=== PATIENT | male | born 1940 | race Caucasian/White ===

== ENCOUNTER 2017-09-04 14:41 | Inpatient (IN) ==
[2017-09-04] MEDS ORDERED: methylPREDNISolone 125 MG/2 ML VIAL IVP ONE (14:46)
[2017-09-04] MEDS ORDERED: Ipratropium/Albuterol Neb 3 ML IH ONE (14:47)
--- NOTE | 2017-09-04 15:20 | Emergency Department Note ---
Disposition Clinical Impression: Elevated troponin, Acute electrocardiogram changes CKD (chronic kidney disease) Qualifiers: Chronic kidney disease stage: unspecified stage Qualified Code(s): N18.9 - Chronic kidney disease, unspecified CHF (congestive heart failure) Qualifiers: Congestive heart failure type: unspecified congestive heart failure type Congestive heart failure chronicity: acute Qualified Code(s): I50.9 - Heart failure, unspecified GI bleed Qualifiers: GI bleed type/associated pathology: unspecified gastrointestinal hemorrhage type Qualified Code(s): K92.2 - Gastrointestinal hemorrhage, unspecified Anemia Qualifiers: Anemia type: unspecified type Qualified Code(s): D64.9 - Anemia, unspecified Disposition: Admitted As Inpatient Condition: Fair General Adult HPI - General Chief complaint: ED Shortness of Breath/Dyspnea Stated complaint: Dyspnea Time Seen by Provider: 09/04/17 14:43 Source: patient, EMS Limitations: no limitations Nursing Notes Reviewed: Yes Vital Signs Reviewed: Yes - History of Present Illness HPI Narrative: 77-year-old male with a history of dementia and a history of a large stroke affecting the left side of his body. He is mostly bedbound at home. He presents today due to increased generalized fatigue and cough. He does have a history of COPD and does take albuterol at home and has been needing additional albuterol treatments. In addition his caregiver noted that his temperatures from climbing but has not been specifically febrile. He does have a history of dementia and his ex- this is so caregiver. She expresses to me that she is having difficulty in taking care of him due to his increased fatigue. He does state Xarelto 15 mg daily reportedly for stroke prevention. Denies a history of blood clots or A. fib. He has had a cough but is nonproductive. He denies any difficulty with bowel movements or urination. No nausea or vomiting. Pain Scale: 0 Consistency: constant Improves with: nothing Worsens with: nothing Associated symptoms: Reports: denies other symptoms Treatments Prior to Arrival: none - Related Data Home Medications Medication Instructions Recorded Confirmed Aspirin Enteric Coated [Aspirin EC] 81 mg PO DAILY 08/25/15 05/09/16 Donepezil [Aricept] 5 mg PO HS 08/25/15 05/09/16 Fesoterodine Fumarate [Toviaz] 4 mg PO DAILY 08/25/15 05/09/16 Gabapentin [Neurontin] 600 mg PO BID 08/25/15 05/09/16 Metoprolol XL (24 HR) Succ [Toprol 25 mg PO DAILY 08/25/15 05/09/16 XL] Rivaroxaban [Xarelto] 15 mg PO 1700 08/25/15 05/09/16 Sertraline [Zoloft] 150 mg PO DAILY 08/25/15 05/09/16 Albuterol Sulfate [Ventolin Hfa] 2 puff IH Q4H PRN 05/09/16 05/09/16 Atorvastatin Calcium [Lipitor] 80 mg PO HS 05/09/16 05/09/16 GlipiZIDE [Glucotrol] 10 mg PO BIDWM 05/09/16 05/09/16 [place]-3/Dha/Epa/Fish Oil [Fish Oil 1 each PO DAILY 05/09/16 05/09/16 1,000 mg Softgel] Pioglitazone HCl [Actos] 30 mg PO DAILY 05/09/16 05/09/16 Trazodone HCl 200 mg PO HS 05/09/16 05/09/16 Previous Rx's Medication Instructions Recorded LORazepam [Ativan] 1 mg PO QID PRN #20 tablet 08/28/15 OxyCODONE/APAP 7.5/325 [Percocet 1 each PO Q6HR PRN #20 tablet 08/28/15 7.5/325] SitaGLIPtin [Januvia] 50 mg PO DAILY #30 tablet 08/28/15 Levofloxacin [Levaquin] 750 mg PO DAILY #3 tablet 05/13/16 Losartan Potassium [Cozaar] 50 mg PO DAILY #30 tab 05/13/16 Allergies Allergy/AdvReac Type Severity Reaction Status Date / Time No Known Allergies Allergy Verified 08/25/15 14:22 All systems ED: reviewed and negative except as stated. Constitutional: Denies: fever Eyes: Denies: vision change ENT ED: Denies: throat pain Cardiovascular: Reports: dyspnea on exertion. Denies: chest pain Respiratory: Reports: cough, dyspnea. Denies: wheezes Gastrointestinal: Reports: abdominal pain Genitourinary: Denies: dysuria Musculoskeletal: Denies: back pain Integumentary: Denies: rash Endocrine: Reports: fatigue Past Medical History - Past Medical History Medical history: Reports: asthma, CVA, diabetes, hyperlipidemia, hypertension, myocardial infarction, peripheral artery disease Surgical history: Reports: other Psychiatric history: Reports: PTSD - Social History Smoking Status: Former smoker Smokeless Tobacco Status: No Alcohol use: Reports: occasionally Drug use: Reports: none Physical Exam - General Limitations: no limitations General appearance: alert, in no apparent distress - Head Head exam: atraumatic - Eye Eye exam: Present: normal appearance, PERRL - ENT ENT exam: normal exam - Neck Neck exam: Present: normal inspection - Chest Chest inspection: Present: normal inspection - Respiratory Respiratory exam: Absent: respiratory distress - Cardiovascular Cardiovascular exam: Present: regular rate, normal rhythm - Abdominal Exam Abdominal exam: Present: soft, Non-Tender - Extremities Exam Extremities exam: Present: normal inspection - Neurological Exam Neurological exam: Present: alert, other (He has baseline dementia with confusion. He does have significant motor and sensory deficit of the left side of his body. This is chronic) - Skin Skin exam: Present: warm, dry Course Course Narrative: He is having dyspnea with a cough and elevated temperature. His SPO2 was decreased at triage. I do have concern for pneumonia. We will get a chest x- ray and basic lab work. His EKG does demonstrate some diffuse changes including diffuse T-wave inversions. He denies having any chest pain at this time. He denies having cardiac disease and said he had a heart catheter approximately 2 years ago which did not require stents. Hemoccult is positive. I spoke with welt sole layer Dr. Jeff. I expressed to him the EKG changes along with the elevated troponin and the decreased hemoglobin. As he is Hemoccult positive and he is already anticoagulated on Xarelto we will not do heparin at this time. Dr. Jeff recommended to currently hold diuresis and turned his troponin he will see him in the morning. We will admit to the hospitalist. Vital Signs Temperature 99.9 F H 09/04/17 14:45 Pulse Rate 71 09/04/17 14:45 Respiratory Rate 18 09/04/17 14:45 Blood Pressure 134/59 09/04/17 14:45 O2 Sat by Pulse Oximetry 91 09/04/17 14:45 Temperature 99.9 F H 09/04/17 14:45 Pulse Rate 69 09/04/17 19:00 Respiratory Rate 20 09/04/17 19:00 Blood Pressure 136/56 09/04/17 19:00 O2 Sat by Pulse Oximetry 97 09/04/17 19:00 Oxygen Delivery Oxygen Delivery Nasal Cannula Medical Decision Making - Medical Records Medical records reviewed: Yes I reviewed the patient's medical records. - Lab Data Lab results reviewed: Yes I reviewed the patient's lab results. Result diagrams: 09/04/17 15:28 09/04/17 15:28 Lab Results 09/04/17 09/04/17 09/04/17 Range/Units 15:28 15:28 15:28 WBC 14.2 H (4.3-11.1) K/mcL RBC 2.64 L (4.19-5.50) M/mcL Hgb 8.4 L (12.9-16.9) g/dL Hct 26.0 L (37.5-50.1) % MCV 98.5 (83.0-100.0) fL MCH 31.8 (28.0-33.3) pg MCHC 32.3 (31.6-35.5) g/dL RDW 14.1 (11.5-14.5) % Plt Count 157 (140-400) K/mcL MPV 9.9 (9.4-12.4) fL Immature Gran % 0.4 (0-4) % Seg Neutrophils % 90.6 % Lymphocytes % 3.3 % Monocytes % 5.5 % Eosinophils % 0.1 % Basophils % 0.1 % Neutrophils # 12.9 H (1.6-8.9) K/mcL Lymphocytes # 0.5 L (0.6-4.6) K/mcL Monocytes # 0.8 (0.0-1.3) K/mcL Eosinophils # 0.0 (0.0-0.6) K/mcL Basophils # 0.0 (0.0-0.2) K/mcL PT (9.4-12.1) Seconds INR APTT (26.0-36.0) Seconds Sodium 131 L (136-145) mEq/L Potassium 5.5 H (3.5-4.5) mEq/L Chloride 96 L (98-109) mEq/L Carbon Dioxide 29 (19-29) mEq/L BUN 36 H (8-26) mg/dL Creatinine 2.31 H (0.72-1.25) mg/dL Est GFR ( Amer) 33 L (> 60) Est GFR (Non-Af Amer) 27 L (> 60) BUN/Creatinine Ratio 16 (6-26) Glucose 279 H (70-99) mg/dL Calculated Osmolality 290 (280-300) Lactic Acid 1.4 (0.5-2.2) mmol/L Calcium 9.0 (8.6-10.8) mg/dL Troponin I (0-0.03) ng/mL B-Natriuretic Peptide (0-100) pg/mL Stool Occult Blood (Negative) Blood Type Antibody Screen 09/04/17 09/04/17 09/04/17 Range/Units 15:28 15:28 15:28 WBC (4.3-11.1) K/mcL RBC (4.19-5.50) M/mcL Hgb (12.9-16.9) g/dL Hct (37.5-50.1) % MCV (83.0-100.0) fL MCH (28.0-33.3) pg MCHC (31.6-35.5) g/dL RDW (11.5-14.5) % Plt Count (140-400) K/mcL MPV (9.4-12.4) fL Immature Gran % (0-4) % Seg Neutrophils % % Lymphocytes % % Monocytes % % Eosinophils % % Basophils % % Neutrophils # (1.6-8.9) K/mcL Lymphocytes # (0.6-4.6) K/mcL Monocytes # (0.0-1.3) K/mcL Eosinophils # (0.0-0.6) K/mcL Basophils # (0.0-0.2) K/mcL PT 21.4 H (9.4-12.1) Seconds INR 2.0 APTT 38.8 H (26.0-36.0) Seconds Sodium (136-145) mEq/L Potassium (3.5-4.5) mEq/L Chloride (98-109) mEq/L Carbon Dioxide (19-29) mEq/L BUN (8-26) mg/dL Creatinine (0.72-1.25) mg/dL Est GFR ( Amer) (> 60) Est GFR (Non-Af Amer) (> 60) BUN/Creatinine Ratio (6-26) Glucose (70-99) mg/dL Calculated Osmolality (280-300) Lactic Acid (0.5-2.2) mmol/L Calcium (8.6-10.8) mg/dL Troponin I 0.63 H* (0-0.03) ng/mL B-Natriuretic Peptide 1443 H (0-100) pg/mL Stool Occult Blood (Negative) Blood Type Antibody Screen 09/04/17 09/04/17 Range/Units 16:20 16:46 WBC (4.3-11.1) K/mcL RBC (4.19-5.50) M/mcL Hgb (12.9-16.9) g/dL Hct (37.5-50.1) % MCV (83.0-100.0) fL MCH (28.0-33.3) pg MCHC (31.6-35.5) g/dL RDW (11.5-14.5) % Plt Count (140-400) K/mcL MPV (9.4-12.4) fL Immature Gran % (0-4) % Seg Neutrophils % % Lymphocytes % % Monocytes % % Eosinophils % % Basophils % % Neutrophils # (1.6-8.9) K/mcL Lymphocytes # (0.6-4.6) K/mcL Monocytes # (0.0-1.3) K/mcL Eosinophils # (0.0-0.6) K/mcL Basophils # (0.0-0.2) K/mcL PT (9.4-12.1) Seconds INR APTT (26.0-36.0) Seconds Sodium (136-145) mEq/L Potassium (3.5-4.5) mEq/L Chloride (98-109) mEq/L Carbon Dioxide (19-29) mEq/L BUN (8-26) mg/dL Creatinine (0.72-1.25) mg/dL Est GFR ( Amer) (> 60) Est GFR (Non-Af Amer) (> 60) BUN/Creatinine Ratio (6-26) Glucose (70-99) mg/dL Calculated Osmolality (280-300) Lactic Acid (0.5-2.2) mmol/L Calcium (8.6-10.8) mg/dL Troponin I (0-0.03) ng/mL B-Natriuretic Peptide (0-100) pg/mL Stool Occult Blood Positive A (Negative) Blood Type A POSITIVE Antibody Screen NEGATIVE - Radiology Data Radiology results reviewed: Yes I reviewed the patient's radiology results. - EKG Data EKG #1 EKG attestation: Yes I reviewed and interpreted this EKG. EKG shows normal: sinus rhythm Rate: normal Rhythm: NSR [place]/QRS: RBBB ST segment depression in: II, III, aVF, v3, v4, v5, v6 When compared to previous EKG there are: changes noted Interpretation: other (Diffuse T-wave inversions and mild ST depression in the lateral leads) Attestation Statement - Attestation Attestation: I, Jaydon Barcenas DO, examined this patient [id number] and my medical decision-making was reviewed with Dr. Chaz Gerard, Resident Physician. I agree with the documented findings, disposition and treatment plan as described except to the extent set forth below. Please see my progress notes for details. 77-year-old male presents by EMS for evaluation of shortness of breath . Patient is an productive sputum as well as increased work of breathing at home. Patient is also been hypoxic with his pulse ox pain in the upper 80s to 90s. Patient does not have oxygen at home at this time. Denies any other trauma or injury. Patient has pain in the right lower extremity but no signs of visible injury issue at this point. Vital signs. Patient is tachycardic and hypoxic. Breathing treatments steroids chest x-ray EKG labs including troponin and BNP as well as lactic acid will be started. Patient has been on amoxicillin at home with no relief of the symptoms at this point. Patient will most likely need admission for definitive evaluation and treatment. His physical exam is otherwise unremarkable. Patient speaks in full sentences does have slight conversational dyspnea. Lungs are otherwise clear but he does have increased work of breathing. Heart is regular on exam. Disposition will be admission. See detailed documentation of physical exam, medical intervention, medical decision-making and disposition the resident physician's note 1900 Patient found to have significant pulmonary edema and elevated BNP. She is otherwise stable at this point. Will be admitted for fluid evaluation. Recommended to withhold heparin at this time until troponins are trending. Patient is clinically stable at this point. No diuresis started considering the prior blood pressure has been labile. Patient is otherwise stable resting about this point comfortable with the admission process.
[2017-09-04 15:38] LABS: Basophils % 0.1 %; Eosinophils % 0.1 %; Hemoglobin 8.4 g/dL (12.9-16.9); Immature Granulocytes % 0.4 % (0-4); Lymphocytes # 0.5 K/mcL (0.6-4.6); Lymphocytes % 3.3 %; Mean Corpuscular HGB Conc 32.3 g/dL (31.6-35.5); Mean Corpuscular Hemoglobin 31.8 pg (28.0-33.3); Mean Corpuscular Volume 98.5 fL (83.0-100.0); Mean Platelet Volume 9.9 fL (9.4-12.4); Monocytes # 0.8 K/mcL (0.0-1.3); Monocytes % 5.5 %; Neutrophils # 12.9 K/mcL (1.6-8.9); Platelet Count 157 K/mcL (140-400); Red Blood Count 2.64 M/mcL (4.19-5.50); Red Cell Distribution Width 14.1 % (11.5-14.5); Segmented Neutrophils % 90.6 %
[2017-09-04 15:42] LABS: Prothrombin Time 21.4 Seconds (9.4-12.1)
[2017-09-04 15:45] LABS: Activated Partial Thrombo Time 38.8 Seconds (26.0-36.0)
[2017-09-04 15:50] LABS: Potassium 5.5 mEq/L (3.5-4.5)
[2017-09-04] MEDS ORDERED: Calcium Gluconate 1,000 MG in D5% in Water 100 ML IVPB ONE (20:00)
[2017-09-04] MEDS ORDERED: Ondansetron 4 MG/2 ML VIAL IVP PRN (21:22)
[2017-09-04] MEDS ORDERED: Acetaminophen 325 MG TABLET PO PRN (21:22)
[2017-09-04] MEDS ORDERED: Naloxone 0.4 MG/ML INJ IVP PRN (21:22)
[2017-09-04] MEDS ORDERED: Nitroglycerin 0.4 MG TAB.SUBL SL PRN (21:25)
[2017-09-04] MEDS ORDERED: *HR* LORazepam 1 MG TABLET PO PRN (21:25)
[2017-09-04] MEDS ORDERED: Dextrose Gel 15 GM PO PRN ×2 (21:28)
[2017-09-04] MEDS ORDERED: D5% in Water 1,000 ML IVC PRN (21:28)
[2017-09-04] MEDS ORDERED: *HR* Dextrose 50 % in Water (Syg) 50 ML SYRINGE IVP PRN (21:28)
[2017-09-04] MEDS ORDERED: Insulin LISPRO 300 UNITS/3 ML VIAL SQ SCH (21:30)
--- NOTE | 2017-09-04 21:32 | Internal Med History&Physical ---
Date of Encounter: 09/04/17 Time of Encounter: 21:32 Assessment and Plan (1) Anemia Current visit: Yes Status: Acute 1 secondary to blood loss-as well as patient does have CK D. In June patient' s hemoglobin was 10% to a point for now. She is on several toe and does admit to episodes of bright red blood in his stool. She was Hemoccult positive. We will continue to trend H&H every 8 hours Type and screen 1 unit PRBCs Continue cardiac monitoring Qualifiers: Anemia type: unspecified type Qualified Code(s): D64.9 - Anemia, unspecified (2) GI bleed Current visit: Yes Status: Acute Patient has been experiencing bright red blood in his stool he was Hemoccult positive and he is on xarelto -we will hold xarelto for now Monitor H&H every 8 hours Type and screen for PRBC and transfuse Consult GI-patient's last colonoscopy was approximately 5 years ago in [place] per Dr. Garland-he had some polyps removed Qualifiers: GI bleed type/associated pathology: unspecified gastrointestinal hemorrhage type Qualified Code(s): K92.2 - Gastrointestinal hemorrhage, unspecified (3) CHF (congestive heart failure) Current visit: Yes Status: Acute 1 Echo 2016 Mildly dilated left ventricle. LVEF 50-55%. There is akinesis of the basal inferior wall. All other myocardial segments display normal wall motion. Normal right ventricular structure and function. Valvular function was not assessed on this limited study. We will obtain echo, continuous cardiac monitoring We will give 1 dose of 40 mg IV Lasix now-she appears to have mild CHF We will consult cardiology We will place on 40 mg by mouth daily Qualifiers: Congestive heart failure type: unspecified congestive heart failure type Congestive heart failure chronicity: acute Qualified Code(s): I50.9 - Heart failure, unspecified (4) Elevated troponin Current visit: Yes Status: Acute Patient does have elevated troponin we will continue to trend sure this is related to demand ischemia he does not have any chest pain he does ST depression lateral leads. Continuous cardiac monitoring Consult cardiology We will give 1 unit of PRBCs He is anticoagulated Xarelto- we will hold dose for now due to positive Hemoccult (5) ROSA MARIA (acute kidney injury) Current visit: Yes Status: Acute (6) Hyperkalemia Current visit: Yes Status: Acute Patient has potassium 5.5 creatinine is also elevated. He is on Cozaar which we will hold for now he was given insulin bicarbonate calcium gluconate. We will give 40 mg IV Lasix now. We will recheck potassium at midnight. Cardiac monitoring (7) DVT prophylaxis Current visit: No Status: Acute SCDs Internal Medicine - H&P: HPI Chief complaint: weakness Admitted From: Emergency Dept History of present illness: Mr. Stockton is a 77 year old male past medical history of hypertension hyperlipidemia diabetes COPD CVA-T 97 CK D stage III CAD dementia. Coronary patient has been experiencing increasing dyspnea with cough weakness and fatigue. He does have history of COPD and has been taking albuterol treatments with little relief. He has left-sided weakness secondary to CVA and is mostly bedbound at home. Family reports subjective fevers. Denies any chest pain abdominal pain nausea vomiting or diarrhea. He has episodes of bright red blood in stool a few weeks ago however however nothing recently. He does take Xarelto 15 mg daily for stroke prevention. Did have a heart catheter 2 years ago with no stents He denies any melenic stools or hematemesis. His last colonoscopy was approximately 5 years ago at [facility] per Dr. Garland. He states he had several polyps removed. He presented to the ER with the above complaints in the ER was noted his troponin was elevated as well as his Hemoccult was positive there was some ST depression in lateral leads on his EKG. ER physician did speak with Dr. Jeff in detail with her heparin drip at this time due to his artery anticoagulated and continue to trend his troponins and they would see him in the morning. He has been admitted for further evaluation. Presently patient is not to be actively bleeding. Clinically he appears to be mildly fluid overloaded. He is hemodynamically stable at this time. I did review this case with who agrees with plan. Past Med Surg Social Fam HX - Past Medical History Medical history: asthma, CVA, diabetes, hyperlipidemia, hypertension, myocardial infarction, peripheral artery disease Psychiatric history: PTSD - Past Surgical History Surgical History: other - Social History Smoking Status: Former smoker Smokeless Tobacco Status: No Alcohol use: none, rarely Drug use: none - Family History Father Adopted: No Family Member Ethnicity: Non- Living Status: Hx Family Cardiac Disorders: Yes Internal Medicine - H&P: Meds Aspirin Enteric Coated [Aspirin EC] 81 mg PO DAILY 08/25/15 [History] Donepezil [Aricept] 5 mg PO HS 08/25/15 [History] Gabapentin [Neurontin] 600 mg PO BID 08/25/15 [History] Metoprolol XL (24 HR) Succ [Toprol XL] 25 mg PO DAILY 08/25/15 [History] Rivaroxaban [Xarelto] 15 mg PO 1700 08/25/15 [History] Sertraline [Zoloft] 150 mg PO DAILY 08/25/15 [History] LORazepam [Ativan] 1 mg PO QID PRN #20 tablet 08/28/15 [Rx] OxyCODONE/APAP 7.5/325 [Percocet 7.5/325] 1 each PO Q6HR PRN #20 tablet [Rx] Albuterol Sulfate [Ventolin Hfa] 2 puff IH Q4H PRN 05/09/16 [History] Atorvastatin Calcium [Lipitor] 80 mg PO HS 05/09/16 [History] GlipiZIDE [Glucotrol] 10 mg PO BIDWM 05/09/16 [History] [place]-3/Dha/Epa/Fish Oil [Fish Oil 1,000 mg Softgel] 1 each PO DAILY 05/09/16 [ History] Trazodone HCl 200 mg PO HS 05/09/16 [History] Losartan Potassium [Cozaar] 50 mg PO DAILY #30 tab 05/13/16 [Rx] Ergocalciferol (VITAMIN D2) [Vitamin D2] 50,000 unit PO QMONTH 09/04/17 [History ] Ferrous Sulfate [Iron] 325 mg PO DAILY 09/04/17 [History] Ipratropium/Albuterol Neb [Duoneb] 3 ml IH Q6HR 09/04/17 [History] Mirabegron [Myrbetriq] 50 mg PO DAILY 09/04/17 [History] Nitroglycerin [Nitrostat] 0.4 mg SL Q5M PRN 09/04/17 [History] Pioglitazone HCl [Actos] 30 mg PO DAILY 09/04/17 [History] Sitagliptin Phosphate [Januvia] 50 mg PO DAILY 09/04/17 [History] 3 Allergy/AdvReac Type Severity Reaction Status Date / Time No Known Allergies Allergy Verified 08/25/15 14:22 All Systems PM: A 10-system review of systems was performed and is negative for pertinent findings except as documented above in the HPI. - Constitutional Constitutional: weakness, no chills, no fever(s), no night sweats - EENT Eyes: no change in vision, no discharge, no pain, no photophobia Ears: no ear discharge, no ear pain, no tinnitus Nose, mouth and throat: no dysphagia, no nasal discharge, no neck pain, no sore throat - Cardiovascular Cardiovascular ROS IM: dyspnea, no chest pain, no diaphoresis, no lightheadedness, no palpitations, no syncope - Respiratory Respiratory: cough - Gastrointestinal Gastrointestinal: no abdominal pain, no diarrhea, no hematemesis, no hematochezia, no melena, no nausea, no vomiting - Musculoskeletal Musculoskeletal ROS IM: no numbness, no tingling - Neurological Neurological ROS: no confusion, no convulsions, no focal weakness, no numbness, no tingling, no tremor(s) - Hematologic/Lymphatic Hematologic/Lymphatic: no easy bruising - Constitutional Vitals: Temp Pulse Resp BP Pulse Ox 98.7 F 73 20 138/61 96 09/04/17 20:37 09/04/17 20:37 09/04/17 20:37 09/04/17 20:37 09/04/17 20:37 General appearance: Present: A&O X 3 - Head Head exam: Present: atraumatic, normocephalic - Eye Eye exam: Present: PERRL, conjuntiva pink, sclera anicteric Pupils: Present: PERRL - Neck Neck exam general surgery: Present: supple, trachea midline. Absent: lymphadenopathy - Respiratory Respiratory exam: Present: rales. Absent: accessory muscle use, rhonchi, wheezes - Cardiovascular Cardiovascular exam: Present: RRR, +S1, +S2. Absent: diastolic murmur, gallop, rubs, systolic murmur - GI/Abdominal GI/Abdominal exam: Present: normal bowel sounds, soft, no peritoneal signs. Absent: distended, tenderness - Extremities Exam Extremities exam: Present: pedal edema, warm, radial pulses palpable and symmetrical. Absent: calf tenderness, cyanotic - Neurological Exam Neurological exam: Present: CN II-XII intact, oriented X3, no focal deficits. Absent: pronater drift, facial droop, speech deficit - Skin Skin exam: Present: dry, intact Internal Med - H&P Results - Labs CBC & Chem 7: 09/04/17 15:28 09/04/17 15:28 - Diagnostic Studies Other Images Additional comments: Chest X-Ray 09/04/17 14:46 IMPRESSION: Mild pulmonary vascular congestion. No focal consolidation. D/ / Jolene Cooper MD / Jolene Cooper MD Interpreting Provider: Jolene Cooper MD Head CT 09/04/17 16:42 IMPRESSION: 1. No acute intracranial abnormality. 2. 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 D/ / Camden Martin MD / Camden Martin MD Interpreting Provider: Camden Martin MD Pulmonary Perfusion Imaging 09/04/17 16:42 IMPRESSION: Very low probability for pulmonary embolism. D/ / Camden Martin MD / Camden Martin MD Interpreting Provider: Camden Martin MD
[2017-09-04] MEDS ORDERED: Furosemide 40 MG/4 ML VIAL IVP ONE ×2 (21:48→22:34)
[2017-09-04] MEDS ORDERED: Furosemide 20 MG/2 ML VIAL IVP ONE (21:56)
--- NOTE | 2017-09-04 22:27 | Event Note ---
Date of Encounter: 09/04/17 Time of Encounter: 22:25 Patient and examined with nurse practitioner. His occult blood is positive and Hb is 2 gm lower than baseline. Because his troponin is 0.[address]- segment depressions laterally, will hold xarelto and give 1 unit of blood for Hb of 8.4 followed by 20 IV lasix. Serial troponin and Hb. iv protonix. Cardiology and GI consultation
[2017-09-04 23:03] LABS: Hematocrit 26.7 % (37.5-50.1); Hemoglobin 8.9 g/dL (12.9-16.9)
[2017-09-04] MEDS: *HR* OxyCODONE/APAP 7.5/325 TABLET PO PRN (23:47)
[2017-09-04] MEDS: Gabapentin 300 MG CAPSULE PO SCH (23:48)
[2017-09-04] MEDS: traZODone 50 MG TABLET PO SCH (23:48)
[2017-09-05] MEDS ORDERED: Furosemide 20 MG/2 ML VIAL IVP ONE (00:14)
[2017-09-05] MEDS ORDERED: *HR* Dextrose 50 % in Water (Syg) 50 ML SYRINGE IVP ONE (03:29)
[2017-09-05] MEDS ORDERED: Insulin Human Regular 10 UNIT in 0.9 % Sodium Chloride 10 ML IV ONE (03:30)
[2017-09-05] MEDS ORDERED: 0.9 % Sodium Chloride 500 ML IVC ONE (03:31)
[2017-09-05] MEDS ORDERED: Calcium Gluconate 1,000 MG in D5% in Water 100 ML IVPB ONE (03:31)
[2017-09-05] MEDS: Ipratropium/Albuterol Neb 3 ML IH SCH ×4 (04:10→22:26)
[2017-09-05 05:36] LABS: Calcium 8.9 mg/dL (8.6-10.8); Magnesium 2.2 mg/dL (1.6-2.6); Potassium 5.3 mEq/L (3.5-4.5)
[2017-09-05 05:38] LABS: Basophils % 0.1 %; Hematocrit 25.3 % (37.5-50.1); Hemoglobin 8.4 g/dL (12.9-16.9); Immature Granulocytes % 0.3 % (0-4); Lymphocytes # 0.3 K/mcL (0.6-4.6); Lymphocytes % 2.9 %; Mean Corpuscular HGB Conc 33.2 g/dL (31.6-35.5); Mean Corpuscular Hemoglobin 32.2 pg (28.0-33.3); Mean Corpuscular Volume 96.9 fL (83.0-100.0); Mean Platelet Volume 11.2 fL (9.4-12.4); Monocytes % 0.1 %; Neutrophils # 9.3 K/mcL (1.6-8.9); Platelet Count 149 K/mcL (140-400); Red Blood Count 2.61 M/mcL (4.19-5.50); Red Cell Distribution Width 13.8 % (11.5-14.5); Segmented Neutrophils % 96.6 %
[2017-09-05 06:06] LABS: Hematocrit 24.3 % (37.5-50.1); Hemoglobin 7.9 g/dL (12.9-16.9)
[2017-09-05] MEDS: Pantoprazole 40 MG VIAL IVP SCH ×2 (06:40→18:03)
[2017-09-05] MEDS ORDERED: 0.9 % Sodium Chloride 250 ML ONE (07:15)
[2017-09-05 07:27] LABS: Toxic Granulation Present (Not Present)
[2017-09-05 07:28] LABS: Platelet Estimate Normal (Normal)
[2017-09-05] MEDS ORDERED: Insulin LISPRO 300 UNITS/3 ML VIAL SQ SCH ×2 (07:30)
[2017-09-05] MEDS: Gabapentin 300 MG CAPSULE PO SCH ×2 (08:50→20:55)
[2017-09-05] MEDS: (Fish Oil 1,000 Mg Softgel) PO SCH (08:51)
[2017-09-05] MEDS: Metoprolol XL (24 HR) Succ 25 MG TAB.ER.24H PO SCH (08:51)
[2017-09-05] MEDS: Furosemide 20 MG TABLET PO SCH (08:51)
[2017-09-05] MEDS: MYRBETRIQ PO SCH (08:51)
[2017-09-05] MEDS: Aspirin Enteric Coated 81 MG Tablet PO SCH (08:52)
[2017-09-05] MEDS: Insulin LISPRO 300 UNITS/3 ML VIAL SQ SCH ×3 (08:56→17:59)
[2017-09-05] MEDS ORDERED: Furosemide 20 MG TABLET PO SCH (09:00)
[2017-09-05] MEDS ORDERED: NON-FORMULARY MEDICATION 1 EACH EACH (Losartan Potassium [Cozaar] 50 MG) PO SCH (09:00)
[2017-09-05] MEDS ORDERED: Pantoprazole 40 MG VIAL IVP SCH (09:00)
--- NOTE | 2017-09-05 09:05 | Electrocardiograph Report ---
[place] [address] Test Date: 2017-09-04 Pat Name: Bryson Stockton Department: 102 Room: 2NE31 Gender: M [employer] Tender: : 1940 Requested By: Jaydon Barcenas Order Number: [id number] Reading MD: Kadi Arreola Measurements Intervals [place] Rate: 74 P: 70 [place]: 184 QRS: 90 QRSD: 150 T: -68 QT: 421 QTc: 449 Interpretive Statements SINUS RHYTHM RIGHT BUNDLE BRANCH BLOCK [120+ ms QRS DURATION, UPRIGHT V1, 40+ ms S IN I/aVL/V4/V5/V6] MODERATE T-WAVE ABNORMALITY, CONSIDER LATERAL ISCHEMIA [-0.1+ mV T WAVE IN I/aVL/V5/V6] MODERATE T-WAVE ABNORMALITY, CONSIDER INFERIOR ISCHEMIA [-0.1+ mV T WAVE IN II/aVF] Electronically Signed On 09-05-2017 9:03:03 EDT by Kadi Arreola
--- NOTE | 2017-09-05 09:28 | Anesthesia Evaluation PreOp ---
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: CVA (residual left side weakness) Other Medical History: Renal (CKD 3), Diabetes Type II, Other (PTSD) Anesthesia History: No Prior Anesthetic Complications, Past Anesthesia Alcohol Use: none, rarely Drug use: none Medications and Allergies Aspirin Enteric Coated [Aspirin EC] 81 mg PO DAILY 08/25/15 [History] Donepezil [Aricept] 5 mg PO HS 08/25/15 [History] Gabapentin [Neurontin] 600 mg PO BID 08/25/15 [History] Metoprolol XL (24 HR) Succ [Toprol XL] 25 mg PO DAILY 08/25/15 [History] Rivaroxaban [Xarelto] 15 mg PO 1700 08/25/15 [History] Sertraline [Zoloft] 150 mg PO DAILY 08/25/15 [History] LORazepam [Ativan] 1 mg PO QID PRN #20 tablet 08/28/15 [Rx] OxyCODONE/APAP 7.5/325 [Percocet 7.5/325] 1 each PO Q6HR PRN #20 tablet [Rx] Albuterol Sulfate [Ventolin Hfa] 2 puff IH Q4H PRN 05/09/16 [History] Atorvastatin Calcium [Lipitor] 80 mg PO HS 05/09/16 [History] GlipiZIDE [Glucotrol] 10 mg PO BIDWM 05/09/16 [History] [place]-3/Dha/Epa/Fish Oil [Fish Oil 1,000 mg Softgel] 1 each PO DAILY 05/09/16 [ History] Trazodone HCl 200 mg PO HS 05/09/16 [History] Losartan Potassium [Cozaar] 50 mg PO DAILY #30 tab 05/13/16 [Rx] Ergocalciferol (VITAMIN D2) [Vitamin D2] 50,000 unit PO QMONTH 09/04/17 [History ] Ferrous Sulfate [Iron] 325 mg PO DAILY 09/04/17 [History] Ipratropium/Albuterol Neb [Duoneb] 3 ml IH Q6HR 09/04/17 [History] Mirabegron [Myrbetriq] 50 mg PO DAILY 09/04/17 [History] Nitroglycerin [Nitrostat] 0.4 mg SL Q5M PRN 09/04/17 [History] Pioglitazone HCl [Actos] 30 mg PO DAILY 09/04/17 [History] Sitagliptin Phosphate [Januvia] 50 mg PO DAILY 09/04/17 [History] 3 Allergy/AdvReac Type Severity Reaction Status Date / Time No Known Allergies Allergy Verified 08/25/15 14:22 - Meds/Allergy Pre-op Review Medications Reviewed: Yes Allergies Reviewed: Yes Beta Blockers on Current Med List: No Anesthesia Results - Labs 09/05/17 05:40 09/05/17 05:40 - Imaging EKG: report reviewed (SINUS RHYTHM RIGHT BUNDLE BRANCH BLOCK [120+ ms QRS DURATION, UPRIGHT V1, 40+ ms S IN I/aVL/V4/V5/V6] MODERATE T-WAVE ABNORMALITY, CONSIDER LATERAL ISCHEMIA [-0.1+ mV T WAVE IN I/aVL/V5/V6] MODERATE T-WAVE ABNORMALITY, CONSIDER INFERIOR ISCHEMIA [-0.1+ mV T WAVE IN II/aVF]) Additional studies: echo 2016: Impressions: Mildly dilated left ventricle. LVEF 50-55%. There is akinesis of the basal inferior wall. All other myocardial segments display normal wall motion. Normal right ventricular structure and function. Valvular function was not assessed on this limited study. Anesthesia Exam Selected Entries 09/05/17 08:10 09/05/17 08:19 Temperature 98.1 F Pulse Rate 66 Respiratory Rate 16 Blood Pressure 140/57 O2 Sat by Pulse Oximetry 99 Weight: 96kg NPO (# of Hours): 8 - REFUND SPECIALIST LOC: Oriented REFUND SPECIALIST Motor: Normal RUE, Normal RLE, Normal Face, Deficit LUE, Deficit LLE REFUND SPECIALIST Sensory: Normal: RUE, RLE, Face, Deficit: LUE, LLE - Cardiac Rhythm: Regular Murmur: None - Pulmonary Breath Sounds: bilateral Clear Respiratory Effort: Symmetrical Anesthesia Assess/Plan ASA Score: 3 Modified Raymond Scale for Level of Consciousness: Cooperative, oriented, and tranquil Anesthetic Plan: MAC Monitoring Plan: Standard Monitors Recovery Plan: Other (discussed MAC, patient agrees to proceed)
--- NOTE | 2017-09-05 09:40 | Gastroenterology Consult Note ---
<AmritmartínJorge garcia - Last Filed: 09/05/17 15:44> Date of Encounter: 09/05/17 Time of Encounter: 09:40 - Assessment and plan (1) Anemia Current Visit: Yes Status: Acute Assessment and plan: Mr. Stockton presents with acute on chronic normocytic anemia with current hemoglobin of 7.9 down from 8.9 yesterday. Review of patient's previous lab results demonstrates that he has an average hemoglobin of about 10.5. Mr. Stockton was complaining of 2 days of hematochezia, nonpainful and currently on chronic anticoagulation with Xarelto. His PT is 21.4 and INR 2.0 and review his previous INR demonstrates slow trending up. Iron studies were completed in June without any significant findings. Hematochezia may be secondary to hemorrhoids or diverticuli, no previous colonoscopy available for review but patient does have a history of polyps with no evaluation in the last 10+ years. Cannot rule out colon cancer or bleeding polyps at this time. Though the patient is currently demonstrating elevated troponins and ST depression on EKG concerning for NSTEMI and currently a high risk patient with current MO per cardiology. Plan: - Hold Xarelto - Keep nothing by mouth - Patient will require EGD but at this time he is too high risk with known cardiac disease. - Patient should receive PRBC transfusion with hemoglobin drop below 8.0 with known coronary artery disease, significant vascular disease. Qualifiers: Anemia type: unspecified type Qualified Code(s): D64.9 - Anemia, unspecified (2) Acute kidney injury superimposed on chronic kidney disease Current Visit: Yes Status: Acute Assessment and plan: Mr. Stockton has a known history of stage III chronic kidney disease and currently demonstrating acute on chronic kidney injury with a current creatinine of 2.33 with a baseline around 1.31, current GFR 27 with baseline around 56. - Likely worsened by dehydration and intravascular depletion secondary to GI loss. Plan: - Treatment per primary team (3) Hyponatremia Current Visit: Yes Status: Acute Assessment and plan: Patient's sodium is 1:30 in the setting of hyperglycemia with a glucose of 441 demonstrating pseudohyponatremia when corrected is appropriate. - Continue to monitor with transfusions and IV fluid rehydration. (4) Leg edema, left Current Visit: Yes Status: Acute Assessment and plan: Lower left extremity edema with 1+ pitting edema identified during physical exam. Patient's says that this has been progressing over the past week which does correlate with this shortness of breath. Mr. Stockton presented with extremity weakness changed from baseline and increasing shortness of breath. Plan: - Venous Doppler of bilateral lower extremities - Patient may need VQ scan, will discuss with primary team - Time Spent With Patient Total time spent is greater than 50% in coordination of care (as documented) at patient's floor/unit and/or counseling patient: GI History of Present Illness - Data of Consult Consult date: 09/05/17 Requesting Physician: Angel Monsivais MD - Consult Narrative Reason for consult: acute anemia History of present illness: Mr. Stockton is a 77 year old male Mr. Stockton is a 77 year old male past medical history of hypertension hyperlipidemia diabetes, MO, carotid artery disease, COPD, RIGHT MCA DISTRIBUTION CVA, CKD stage III CAD dementia. Mr. Stockton's was at bedside who is his primary caregiver and able to provide more accurate history given Mr. Stockton's mental status. According to his he started having streaks of blood in his stool roughly 2 days ago with 2-3 bowel movements per day. He did not complain of any pain and had not had symptoms like this prior. No history of trauma, excess NSAID use or anticoagulation use. He was brought to the hospital for weakness in his right upper extremity and weakness in his bilateral lower extremities. He has chronic weakness in his left upper extremity secondary to a right MCA distribution stroke and primarily uses his right hand and now is having difficulty. Upon further discussion he has been having shortness of breath worse over the last 1- 2 weeks. He is an uncontrolled diabetic with a history of left heart catheterization demonstrating severe single-vessel coronary artery disease of the RCA and mild left ventricular systolic dysfunction with an EF of 40-45% in 2013 at that time it demonstrated 30% stenosis in the proximal LAD and 40% stenosis in the circumflex coronary artery. He did not have any stent placement at that time. Upon admission he was found to elevated troponins, acute on chronic kidney disease, acute on chronic anemia with a positive stool occult. Mr. Stockton's states that he had a colonoscopy 10+ years ago and at that time they found 2 large polyps that were mostly removed but did not grow any malignant or premalignant cells. He had seen a physician in [place] but denies any recommended follow-up. She said that was his first and only colonoscopy. They deny any family history of colon cancer. Colonoscopy: 10+ years ago in [place] EGD: Denies Past Med Surg Social Fam HX - Past Medical History Medical history: asthma, CVA, diabetes, hyperlipidemia, hypertension, myocardial infarction, peripheral artery disease Psychiatric history: PTSD - Past Surgical History Surgical History: other - Social History Smoking Status: Former smoker Smokeless Tobacco Status: No Alcohol use: none, rarely Drug use: none - Family History Father Adopted: No Family Member Ethnicity: Non- Living Status: Hx Family Cardiac Disorders: Yes - Gastrointestinal NSAID use: Denies Anticoagulation Use: Xarelto and aspirin Number of BM Per Day: 1-2 Gastrointestinal: Present: hematochezia (For 2 days). Absent: abdominal pain, bloating, coffee ground emesis, constipation, diarrhea, nausea, vomiting - Constitutional Constitutional: no anorexia, no fatigue, no weight gain, no weight loss - EENT Ears: Present: as per HPI Nose, mouth and throat: Absent: dysphagia - Cardiovascular Cardiovascular ROS: Absent: chest pain, irregular heart rhythm, palpitations - Respiratory Respiratory IM: Present: dyspnea. Absent: cough, hemoptysis - Genitourinary Genitourinary: Absent: change in color - Neurological ROS Neurological GI: Present: confusion - Hematologic/Lymphatic Hematologic/Lymphatic pediatric: Absent: easy bleeding - Musculoskeletal Musculoskeletal ROS GI: Absent: back pain - Integumentary Integumentary GI: Absent: jaundice, pruritis - Psychiatric ROS Psychiatric GI: Absent: anxiety, depression - Constitutional Vitals: Temp Pulse Resp BP Pulse Ox 98.1 F 66 16 140/57 99 09/05/17 08:19 09/05/17 08:19 09/05/17 08:19 09/05/17 08:19 09/05/17 08:10 General appearance: Present: cooperative, no acute distress, answers questions appropriately - Head Head exam: Present: atraumatic, normocephalic - Eye Eye exam: Present: normal appearance, sclera anicteric - Neck Neck exam general surgery: Present: normal inspection, trachea midline - Respiratory Respiratory exam: Present: CTAB - Cardiovascular Cardiovascular exam: Present: RRR, systolic murmur (Grade 2/6 systolic ejection murmur) - GI/Abdominal GI/Abdominal exam: Present: normal bowel sounds, soft, no peritoneal signs - Rectal Rectal exam: Present: deferred - Extremities Exam Extremities exam: Present: warm Additional comments: Left leg 1+ pitting edema to knee - Neurological Exam Neurological exam: Present: no focal deficits - Psychiatric Psychiatric exam: Present: normal affect, normal mood - Skin Skin exam: Present: dry, intact, normal color, warm Additional comments: Crusting of bilateral feet. Results - Labs CBC & Chem 7: 09/05/17 05:40 09/05/17 05:40 Labs: Last Result Calcium 8.9 mg/dL (8.6-10.8) 09/05/17 04:09 Troponin I 0.49 ng/mL (0-0.03) H* 09/05/17 04:09 Stool Occult Blood Positive (Negative) A 09/04/17 16:20 Entire Visit Hgb 7.9 g/dL (12.9-16.9) L 09/05/17 05:40 Hct 24.3 % (37.5-50.1) L 09/05/17 05:40 PT 21.4 Seconds (9.4-12.1) H 09/04/17 15:28 - ABG ABG results: PT/INR, D-dimer PT 21.4 Seconds (9.4-12.1) H 09/04/17 15:28 Consult Discharge Plan - Plan Referrals: Mary Donahue MD [Primary Care Provider] - <Rell Dutta - Last Filed: 09/08/17 12:01> Date of Encounter: 09/05/17 - Time Spent With Patient Total time spent is greater than 50% in coordination of care (as documented) at patient's floor/unit and/or counseling patient: GI History of Present Illness - Data of Consult Requesting Physician: Angel Monsivais MD - Consult Narrative History of present illness: Mr. Stockton is a 77 year old male - Constitutional Vitals: Temp Pulse Resp BP Pulse Ox 98.2 F 61 12 112/44 98 09/08/17 07:17 09/08/17 07:17 09/08/17 10:40 09/08/17 07:17 09/08/17 10:40 Results - Labs CBC & Chem 7: 09/08/17 03:25 09/08/17 03:25 Labs: Last Result Calcium 8.7 mg/dL (8.6-10.8) 09/08/17 03:25 Troponin I 0.41 ng/mL (0-0.03) H* 09/05/17 18:08 Stool Occult Blood Positive (Negative) A 09/04/17 16:20 Entire Visit Hgb 11.1 g/dL (12.9-16.9) L 09/08/17 03:25 Hct 34.0 % (37.5-50.1) L 09/08/17 03:25 PT 21.4 Seconds (9.4-12.1) H 09/04/17 15:28 Total Bilirubin 0.9 mg/dL (0.2-1.2) 09/08/17 03:25 AST 19 Units/L (5-34) 09/08/17 03:25 ALT 26 Units/L (0-55) 09/08/17 03:25 - ABG ABG results: PT/INR, D-dimer PT 21.4 Seconds (9.4-12.1) H 09/04/17 15:28 - Attending Attestation I examined and interviewed Mr Stockton myself and reviewed his labs and scans for this consultation. Cardiology felt patient too high risk for EGD. Hold off workup till cleared by cardiology
--- NOTE | 2017-09-05 11:57 | Cardiology Consult Note ---
<Diane Lay - Last Filed: 09/05/17 13:31> Date of Encounter: 09/05/17 Time of Encounter: 11:00 Assessment and Plan (1) Anemia Current Visit: Yes Status: Acute Per cardiology: -Noted to have worsening anemia on admission. -required transfusion. -of note, was on xarelto for "stroke prevention." Denies history of DVT, PE, or atrial fibrillation. -Management per primary and GI services Qualifiers: Anemia type: unspecified type Qualified Code(s): D64.9 - Anemia, unspecified (2) Elevated troponin Current Visit: Yes Status: Acute Per cardiology: -Troponins 0.65, 0.5, 0.49. -Troponins elevated in the setting of anemia, ROSA MARIA, CHF. -Denies chest pain. -Admits to worsening shortness of breath and worsening fatigue. -ECG changes noted with flipped T waves. -Echo pending. -Troponin elevation may be related to demand ischemia. No cardiac rehab warranted at this time. -Concerning troponin with ECG changes, however unable to perform invasive cardiac testing due to anemia requiring PRBC transfusion. Will not heparinize at this time due to anemia. -Further recommendations pending echo. (3) CHF (congestive heart failure) Current Visit: Yes Status: Acute Per cardiology: -BNP 1443. -Chest x-ray with mild pulmonary vascular congestion. -report increased shortness of breath. -Weight today 95.8kg, weight at PCP office 08/20/17 92kg. -On lasix 40mg daily. -1+ pitting edema noted to left lower extremity. -Strict i/os, daily weights, fluid restriction. -will continue to monitor. Qualifiers: Congestive heart failure type: unspecified congestive heart failure type Congestive heart failure chronicity: acute Qualified Code(s): I50.9 - Heart failure, unspecified (4) ROSA MARIA (acute kidney injury) Current Visit: Yes Status: Acute Per cardiology: -Creatinine 2.33. -Baseline 1.3-1.7. -Management per primary service. (5) CAD (coronary artery disease) Current Visit: Yes Status: Chronic Per cardiology: -Known CAD. -[facility] 2012 with 30% proximal LAD, 40% proximal circumflex, 40% mid circumflex, 99 % mid RCA, 100% distal RCA, distal RCA fills from left collaterals. -04/2016 TTE with LVEF 50-55%, mildly dilated LV, basal inferior wall akinetic. -On asa, statin, beta blokcer. -Echo pending. -Further recommendations pending echo. Qualifiers: Coronary Disease-Associated Artery/Lesion type: [place] artery [place] vs. transplanted heart: cheesh[place]na heart Associated angina: without angina Qualified Code(s): I25.10 - Atherosclerotic heart disease of [place] coronary artery without angina pectoris (6) Preop cardiovascular exam Current Visit: Yes Status: Acute Per cardiology: -Possible need for colonoscopy. -Patient with elevated troponin and ECG changes. Unable to rule out ischemic event at this time. -Concerning symptoms with increased shortness of breath and increased fatigue. -Patient is not active at home and is bed bound most of the time. -Known CAD with [facility] as above. -Per discussion with , patient would be at high risk of cardiovascular event. Discussion w patient/family: The assessment and plan as outlined above was discussed with the patient and/or family members who expressed understanding and agreement. All questions were answered. Thank you for involving us in the care of your patient. Please call with any questions. Discussed and reviewed with . History of Present Illness Consult date: 09/05/17 Requesting physician: Chaz Gerard Consult reason: elevated troponin, CHF, ECG changes Chief complaint: fatigue History of present illness: Mr. Stockton is a 77 year old male with a relevant past medical history of CAD, DMII, HTN, hyperlipidemia, CVA with residual left sided wekaness, COPD, anxiety , carotid stenosis. Patient presented to [facility] with complaints of increased fatigue. Cardiology has been asked to see and evaluate patient due to elevated troponins, ECG changes, and CHF. Patient denies chest pain. Patient denies exertional symptoms, however states he is not able to do much. Patient reports increased shortness of breath and increased fatigue. Past Med Surg Social Fam HX - Past Medical History Attestation: Yes The following information was validated with the patient. Source: patient, old records reviewed, obtained from family Medical history: asthma, CVA, diabetes, hyperlipidemia, hypertension, myocardial infarction, peripheral artery disease Psychiatric history: PTSD - Past Surgical History Surgical History: other - Social History Smoking Status: Former smoker Smokeless Tobacco Status: No Alcohol use: none, rarely Drug use: none - Family History Father Adopted: No Family Member Ethnicity: Non- Living Status: Hx Family Cardiac Disorders: Yes Medications and Allergies Aspirin Enteric Coated [Aspirin EC] 81 mg PO DAILY 08/25/15 [History] Donepezil [Aricept] 5 mg PO HS 08/25/15 [History] Gabapentin [Neurontin] 600 mg PO BID 08/25/15 [History] Metoprolol XL (24 HR) Succ [Toprol XL] 25 mg PO DAILY 08/25/15 [History] Rivaroxaban [Xarelto] 15 mg PO 1700 08/25/15 [History] Sertraline [Zoloft] 150 mg PO DAILY 08/25/15 [History] LORazepam [Ativan] 1 mg PO QID PRN #20 tablet 08/28/15 [Rx] OxyCODONE/APAP 7.5/325 [Percocet 7.5/325] 1 each PO Q6HR PRN #20 tablet [Rx] Albuterol Sulfate [Ventolin Hfa] 2 puff IH Q4H PRN 05/09/16 [History] Atorvastatin Calcium [Lipitor] 80 mg PO HS 05/09/16 [History] GlipiZIDE [Glucotrol] 10 mg PO BIDWM 05/09/16 [History] [place]-3/Dha/Epa/Fish Oil [Fish Oil 1,000 mg Softgel] 1 each PO DAILY 05/09/16 [ History] Trazodone HCl 200 mg PO HS 05/09/16 [History] Losartan Potassium [Cozaar] 50 mg PO DAILY #30 tab 05/13/16 [Rx] Ergocalciferol (VITAMIN D2) [Vitamin D2] 50,000 unit PO QMONTH 09/04/17 [History ] Ferrous Sulfate [Iron] 325 mg PO DAILY 09/04/17 [History] Ipratropium/Albuterol Neb [Duoneb] 3 ml IH Q6HR 09/04/17 [History] Mirabegron [Myrbetriq] 50 mg PO DAILY 09/04/17 [History] Nitroglycerin [Nitrostat] 0.4 mg SL Q5M PRN 09/04/17 [History] Pioglitazone HCl [Actos] 30 mg PO DAILY 09/04/17 [History] Sitagliptin Phosphate [Januvia] 50 mg PO DAILY 09/04/17 [History] 3 Allergy/AdvReac Type Severity Reaction Status Date / Time No Known Allergies Allergy Verified 08/25/15 14:22 All Systems Review: A 10-system review of systems was performed and is negative for pertinent findings except as documented above in the HPI. - Constitutional Constitutional: fatigue - Cardiovascular Cardiovascular: as per HPI, dyspnea at rest, dyspnea on exertion - Gastrointestinal Gastrointestinal: hematochezia Physical Examination Vital Signs, Last 4 Hours Temp Pulse Resp BP Pulse Ox 09/05/17 11:22 98 F 68 16 138/54 97 09/05/17 11:15 98.0 F 68 16 138/54 09/05/17 08:19 98.1 F 66 16 140/57 09/05/17 08:10 98.1 F 72 18 139/65 99 09/05/17 07:58 98.1 F 70 18 139/65 98 General: Conversant, No Apparent Distress HEENT: Atraumatic, Normocephaly, Mucus Membranes Moist Neck: No JVD, Normal carotid pulses Cardiac: Reg Rate and Rhythm, Normal S1 and S2, No Murmur Lungs: Normal Breath Sounds, No Wheeze, Rales, Rhonchi Neuro: Alert and responsive, No focal deficits noted Abdomen: Soft, Non-Tender Skin: No rashes noted on visualized skin Musculoskeletal: No Chest Wall Tenderness, Other (Left sided weakness noted. ) Extremities: No Clubbing, No Cyanosis, Normal Pulses, Other (Left lower extremity with 1+ pitting edema. ) Results 09/05/17 05:40 09/05/17 05:40 Lab Results Impressions Chest X-Ray 09/04/17 14:46 IMPRESSION: Mild pulmonary vascular congestion. No focal consolidation. D/ / Jolene Cooper MD / Jolene Cooper MD Interpreting Provider: Jolene Cooper MD Head CT 09/04/17 16:42 IMPRESSION: 1. No acute intracranial abnormality. 2. 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 D/ / Camden Martin MD / Camden Martin MD Interpreting Provider: Camden Martin MD Pulmonary Perfusion Imaging 09/04/17 16:42 IMPRESSION: Very low probability for pulmonary embolism. D/ / Camden Martin MD / Camden Martin MD Interpreting Provider: Camden Martin MD Active Medications Acetaminophen (Tylenol) 650 mg PO Q6HR PRN PRN Reason: Mild Pain (1-3) Stop: 03/06/18 21:23 Albuterol/Ipratropium (Duoneb) 3 ml IH [id number] IZZY Stop: 03/07/18 04:01 Last Admin: 09/05/17 04:10 Dose: 3 ml Aspirin (Aspirin Ec) 81 mg PO DAILY IZZY Stop: 03/07/18 09:01 Last Admin: 09/05/17 08:52 Dose: Not Given Atorvastatin Calcium (Lipitor) 80 mg PO HS [facility] Stop: 03/07/18 21:01 Dextrose/Water (Dextrose 50% (Syg)) 25 ml IVP AD PRN PRN Reason: Hypoglycemia Stop: 03/06/18 21:29 Donepezil HCl (Aricept) 5 mg PO HS [facility] Stop: 03/06/18 21:31 Last Admin: 09/04/17 23:48 Dose: 5 mg Ergocalciferol (Drisdol (50,000 Unit)) 50,000 unit PO QMONTH IZZY Stop: 03/06/18 21:31 Last Admin: 09/04/17 23:48 Dose: 50,000 unit Ferrous Sulfate (Ferrous Sulfate) 325 mg PO DAILY IZZY Stop: 03/07/18 09:01 Last Admin: 09/05/17 08:51 Dose: 325 mg Furosemide (Lasix) 40 mg PO DAILY IZZY Stop: 03/07/18 09:01 Last Admin: 09/05/17 08:51 Dose: 40 mg Gabapentin (Neurontin) 600 mg PO BID IZZY Stop: 03/06/18 21:31 Last Admin: 09/05/17 08:50 Dose: 600 mg Glucagon (Glucagen) 1 mg IM ONCE PRN PRN Reason: Hypoglycemia Stop: 03/06/18 21:29 Glucose (Gluctose) 15 gm PO ONCE PRN PRN Reason: Hypoglycemia Stop: 03/06/18 21:29 Glucose (Gluctose) 30 gm PO ONCE PRN PRN Reason: Hypoglycemia Stop: 03/06/18 21:29 Dextrose (Dextrose 5%) 1,000 mls @ 100 mls/hr IVC .Q10H PRN PRN Reason: HYPOGLYCEMIA Stop: 03/06/18 21:29 Insulin Human Lispro (Humalog) 0 units SQ TIDAC IZZY PRN Reason: Protocol Stop: 03/07/18 07:31 Last Admin: 09/05/17 08:56 Dose: Not Given Lorazepam (Ativan) 1 mg PO QID PRN PRN Reason: Anxiety Stop: 03/06/18 21:26 Metoprolol Succinate (Toprol Xl) 25 mg PO DAILY [facility] Stop: 03/07/18 09:01 Last Admin: 09/05/17 08:51 Dose: 25 mg Naloxone HCl (Narcan) 0.4 mg IVP Q2MIN PRN PRN Reason: Opioid Reversal Stop: 03/06/18 21:23 Nitroglycerin (Nitroglycerin) 0.4 mg SL Q5M PRN PRN Reason: Chest Pain Stop: 03/06/18 21:26 Ondansetron HCl (Zofran) 4 mg IVP Q8HR PRN PRN Reason: Nausea And Vomiting Stop: 03/06/18 21:23 Oxycodone/Acetaminophen (Percocet 7.5/325) 1 each PO Q6HR PRN PRN Reason: Moderate Pain Stop: 03/06/18 21:26 Last Admin: 09/04/17 23:47 Dose: 1 each Pantoprazole Sodium (Protonix) 40 mg IVP Q12HR IZZY Stop: 03/07/18 06:01 Last Admin: 09/05/17 06:40 Dose: 40 mg Pharmacy Profile Note (Patient Taking Own Medication) 0 each PO DAILY [facility] Stop: 03/07/18 09:01 Last Admin: 09/05/17 08:51 Dose: Not Given Pharmacy Profile Note (Patient Taking Own Medication) 1 each PO DAILY IZZY Stop: 03/07/18 09:01 Last Admin: 09/05/17 08:51 Dose: Not Given Sertraline HCl (Zoloft) 150 mg PO DAILY [facility] Stop: 03/07/18 09:01 Last Admin: 09/05/17 08:51 Dose: 150 mg Trazodone HCl (Trazodone) 200 mg PO HS IZZY Stop: 03/06/18 21:31 Last Admin: 09/04/17 23:48 Dose: 200 mg Laboratory Tests 05/13/16 06/26/16 01/13/17 04:57 12:05 14:26 Creatinine 1.31 H 1.58 H 2.00 H Troponin I B-Natriuretic Peptide Stool Occult Blood 09/04/17 09/04/17 09/04/17 15:28 15:28 16:20 Creatinine Troponin I 0.63 H* B-Natriuretic Peptide 1443 H Stool Occult Blood Positive A 09/04/17 09/05/17 09/05/17 22:00 04:09 04:09 Creatinine 2.33 H Troponin I 0.50 H* 0.49 H* B-Natriuretic Peptide Stool Occult Blood Laboratory Tests 07/02/17 09/04/17 09/05/17 11:55 15:28 04:09 Hgb 10.5 L 8.4 L 8.4 L 09/05/17 05:40 Hgb 7.9 L - Imaging and Cardiology Chest Xray: report reviewed Stress Test: report reviewed Echo: pending, report reviewed Cardiac cath: report reviewed - EKG Interpretation EKG results cardiology: personally reviewed (ECG with SR, RBBB, HR 74. T wave inversions noted in leads II, III, aVR, aVF, V1, V3, V4, V5, V6.), other ( Telemetry reviewed with average HR previous 12 hours noted to be 69, sinus rhythm. PACs and PVCs noted.) Consult Discharge Plan - Plan Referrals: Mary Donahue MD [Primary Care Provider] - <Jonnie Gonzáles - Last Filed: 09/05/17 14:22> Date of Encounter: 09/05/17 - Attending Attestation I have personally performed a face to face evaluation on this patient. I have reviewed and agree with the care plan. History and Exam by me shows: 77 YOM with h/o CAD, occluded RCA receiving collaterals from LCA and non obstructive CAD in the LAD and CIRC. Patient with increasing SOB and PARRY over last few weeks possibly related with his Hgb of around 7. Patients EKG however reveals ischemia in the LAD territory possibly correlating with his non obstructive disease in the Proximal LAD. This along with the Elevated CE's places him at hih risk for cardiac events with surgery. High risk for cardiac events with Surgery due to recent tropnins Recommend LHC when stable from his active bleed. The LHC likely would not result in definitive PCI due to bleed but would r/o critical disease. This can be after colonoscopy or before depending on the degree of urgency of the colonoscopy. Would also recommend ASA, Heparin IV when stable from GI Bleed for current NSTEMI and EKG changes. Assessment and Plan Discussion w patient/family: The assessment and plan as outlined above was discussed with the patient and/or family members who expressed understanding and agreement. All questions were answered. Thank you for involving us in the care of your patient. Please call with any questions. History of Present Illness History of present illness: Mr. Stockton is a 77 year old male All Systems Review: A 10-system review of systems was performed and is negative for pertinent findings except as documented above in the HPI. Physical Examination Vital Signs, Last 4 Hours Temp Pulse Resp BP Pulse Ox 09/05/17 13:52 98.5 F 66 16 146/52 96 09/05/17 11:22 98 F 68 16 138/54 97 09/05/17 11:15 98.0 F 68 16 138/54 Results 09/05/17 05:40 09/05/17 05:40 Lab Results 09/04/17 09/04/17 09/05/17 22:00 22:47 00:26 WBC Hgb 8.9 L Hct 26.7 L Plt Count Sodium Potassium 5.8 H Chloride Carbon Dioxide BUN Creatinine Glucose Calcium Magnesium Troponin I 0.50 H* 09/05/17 09/05/17 09/05/17 04:09 04:09 04:09 WBC 9.6 Hgb 8.4 L Hct 25.3 L Plt Count 149 Sodium 130 L Potassium 5.3 H Chloride 93 L Carbon Dioxide 28 BUN 41 H Creatinine 2.33 H Glucose 441 H Calcium 8.9 Magnesium 2.2 Troponin I 0.49 H* 09/05/17 09/05/17 05:40 05:40 WBC Hgb 7.9 L Hct 24.3 L Plt Count Sodium Potassium 4.4 Chloride Carbon Dioxide BUN Creatinine Glucose Calcium Magnesium Troponin I
[2017-09-05 18:20] LABS: Hematocrit 29.8 % (37.5-50.1)
[2017-09-05 18:21] LABS: Hemoglobin 9.9 g/dL (12.9-16.9)
--- NOTE | 2017-09-05 18:38 | Internal Med Progress Note ---
Date of Encounter: 09/05/17 Time of Encounter: 18:35 - Assessment and plan (1) GI bleed Current Visit: Yes Status: Acute Qualifiers: GI bleed type/associated pathology: unspecified gastrointestinal hemorrhage type Qualified Code(s): K92.2 - Gastrointestinal hemorrhage, unspecified (2) CHF (congestive heart failure) Current Visit: Yes Status: Acute Qualifiers: Congestive heart failure type: unspecified congestive heart failure type Congestive heart failure chronicity: acute Qualified Code(s): I50.9 - Heart failure, unspecified (3) CAD (coronary artery disease) Current Visit: Yes Status: Chronic Qualifiers: Coronary Disease-Associated Artery/Lesion type: [place] artery [place] vs. transplanted heart: [place] heart Associated angina: without angina Qualified Code(s): I25.10 - Atherosclerotic heart disease of [place] coronary artery without angina pectoris (4) DM2 (diabetes mellitus, type 2) Current Visit: Yes Status: Chronic Qualifiers: Diabetes mellitus complication status: without complication Diabetes mellitus long-term insulin use: without long term care social worker use Qualified Code(s): E11.9 - Type 2 diabetes mellitus without complications (5) HTN (hypertension) Current Visit: Yes Status: Acute Qualifiers: Hypertension type: unspecified secondary hypertension Qualified Code(s): I15.9 - Secondary hypertension, unspecified; I15 - Secondary hypertension (6) CKD (chronic kidney disease) Current Visit: Yes Status: Chronic Qualifiers: Chronic kidney disease stage: stage 3 (moderate) Qualified Code(s): N18.3 - Chronic kidney disease, stage 3 (moderate) - Subjective Interval history: Mr. Bryson Stockton is a 77-year-old male past medical history significant for diabetes hypertension dyslipidemia coronary artery disease. Patient presented with GI bleed contributing to demand ischemia/type II non-STEMI. Cardiology has seen the patient. Plan to keep his hemoglobin around 10. Was noted and mild CHF on admission and now on Lasix. Of anticoagulants. GI workup pending. At this time is symptomatic. - Constitutional Vitals: Temp Pulse Resp BP Pulse Ox 98.2 F 70 16 129/49 97 09/05/17 16:18 09/05/17 16:18 09/05/17 16:18 09/05/17 16:18 09/05/17 16:00 General appearance: Present: A&O X 3 - Head Head exam: Present: atraumatic, normocephalic - Eye Eye exam: Present: PERRL, conjuntiva pink, sclera anicteric Pupils: Present: PERRL - Neck Neck exam general surgery: Present: supple, trachea midline. Absent: lymphadenopathy - Respiratory Respiratory exam: Present: CTAB. Absent: accessory muscle use, rales, rhonchi, wheezes - Cardiovascular Cardiovascular exam: Present: RRR, +S1, +S2. Absent: diastolic murmur, gallop, rubs, systolic murmur - GI/Abdominal GI/Abdominal exam: Present: normal bowel sounds, soft, no peritoneal signs. Absent: distended, tenderness - Extremities Exam Extremities exam: Present: pedal edema, warm, radial pulses palpable and symmetrical. Absent: calf tenderness, cyanotic - Neurological Exam Neurological exam: Present: CN II-XII intact, oriented X3, no focal deficits. Absent: pronater drift, facial droop, speech deficit - Skin Skin exam: Present: dry, intact Internal Medicine: Result - Labs CBC & Chem 7: 09/05/17 18:08 09/05/17 05:40 Labs: Short CBC 09/04/17 09/05/17 09/05/17 Range/Units 22:47 04:09 05:40 WBC 9.6 (4.3-11.1) K/mcL Hgb 8.9 L 8.4 L 7.9 L (12.9-16.9) g/dL Hct 26.7 L 25.3 L 24.3 L (37.5-50.1) % Plt Count 149 (140-400) K/mcL Neutrophils # 9.3 H (1.6-8.9) K/mcL 09/05/17 Range/Units 18:08 WBC (4.3-11.1) K/mcL Hgb 9.9 L D (12.9-16.9) g/dL Hct 29.8 L (37.5-50.1) % Plt Count (140-400) K/mcL Neutrophils # (1.6-8.9) K/mcL BMP 09/05/17 09/05/17 09/05/17 00:26 04:09 05:40 Sodium 130 L Potassium 5.8 H 5.3 H 4.4 Chloride 93 L Carbon Dioxide 28 BUN 41 H Creatinine 2.33 H Glucose 441 H Calcium 8.9 Cardiac Enzymes 10/26/17 10/27/17 Range/Units 22:00 04:09 Troponin I 0.50 H* 0.49 H* (0-0.03) ng/mL - ABG Interpretation ABG results: PT/INR, D-dimer PT 21.4 Seconds (9.4-12.1) H 09/04/17 15:28 - Impressions Impressions Echocardiogram 09/05/17 22:29 Impressions: LVEF 55%. Normal LV chamber size, wall thickness and overall function. Mild segmental left ventricular systolic dysfunction. Moderate left ventricular diastolic dysfunction. Normal right ventricular structure and function. Mildly to moderately calcified aortic valve leaflets. No aortic stenosis by Doppler. Visually, there appears to be at least mild aortic stenosis. Mild mitral regurgitation. Mild-moderate mitral stenosis. Mean gradient 5 mmHg, HR 71 bpm. Mild pulmonary hypertension. Estimated RVSP is 41 mmHg. Left Ventricular Wall Motion: Rest Echo Findings The basal inferior wall was hypokinetic. All other wall segments showed normal motion. Findings: Study Quality * Technically adequate exam. ECG Findings * Normal sinus rhythm. Left Ventricle * LVEF 55%. * Normal LV chamber size, wall thickness and function. * Mild segmental left ventricular systolic dysfunction. * Moderate left ventricular diastolic dysfunction. Right Ventricle * Normal right ventricular structure and function. Left Atrium * Moderately dilated left atrium. Right Atrium * Mildly dilated right atrium. Aortic Valve * Trileaflet aortic valve. * Mildly to moderately calcified aortic valve leaflets. * No aortic regurgitation. * No aortic stenosis by Doppler. Visually, there appears to be at least mild aortic stenosis. Mitral Valve * Mildly thickened mitral valve leaflets. * Mild to moderate mitral annular calcification. * Mild mitral regurgitation. * Mild-moderate mitral stenosis. Mean gradient 5 mmHg, HR 71 bpm. Tricuspid Valve * Normal tricuspid valve structure and function. * Trace tricuspid regurgitation. * Mild pulmonary hypertension. * Estimated RVSP is 41 mmHg. * Estimated RA pressure is 5 mmHg. Pulmonic Valve * Pulmonic valve is not well visualized. * No pulmonic regurgitation. Aorta * Normally sized aortic root. Pericardium * The pericardium appears normal. IVC * Normal IVC dimensions and inspiratory collapse. Pulmonary Artery * Normal visualized portions of the main pulmonary artery. Consult Discharge Plan - Plan Referrals: Mary Donahue MD [Primary Care Provider] -
[2017-09-05] MEDS: traZODone 50 MG TABLET PO SCH (20:55)
[2017-09-06] MEDS: Ipratropium/Albuterol Neb 3 ML IH SCH ×4 (04:32→22:35)
[2017-09-06] MEDS: Pantoprazole 40 MG VIAL IVP SCH ×2 (06:00→17:17)
[2017-09-06 07:46] LABS: Albumin 2.9 g/dL (3.5-5.0); Albumin/Globulin Ratio 0.7 (1.1-2.2); Bilirubin,Total 0.6 mg/dL (0.2-1.2); Calcium 8.9 mg/dL (8.6-10.8); Globulin 4.2 g/dL (2.4-3.5); Potassium 4.4 mEq/L (3.5-4.5); Total Protein 7.1 g/dL (6.0-8.3)
[2017-09-06 07:49] LABS: Basophils % 0.2 %; Eosinophils # 0.1 K/mcL (0.0-0.6); Eosinophils % 0.6 %; Hematocrit 31.5 % (37.5-50.1); Hemoglobin 10.4 g/dL (12.9-16.9); Immature Granulocytes % 0.6 % (0-4); Lymphocytes # 0.9 K/mcL (0.6-4.6); Lymphocytes % 7.1 %; Mean Corpuscular Hemoglobin 31.4 pg (28.0-33.3); Mean Corpuscular Volume 95.2 fL (83.0-100.0); Mean Platelet Volume 10.4 fL (9.4-12.4); Monocytes # 0.7 K/mcL (0.0-1.3); Monocytes % 5.5 %; Neutrophils # 10.9 K/mcL (1.6-8.9); Platelet Count 175 K/mcL (140-400); Red Blood Count 3.31 M/mcL (4.19-5.50); Red Cell Distribution Width 15.6 % (11.5-14.5)
[2017-09-06] MEDS: Furosemide 20 MG TABLET PO SCH (09:36)
[2017-09-06] MEDS: Gabapentin 300 MG CAPSULE PO SCH ×2 (09:37→21:02)
[2017-09-06] MEDS: Metoprolol XL (24 HR) Succ 25 MG TAB.ER.24H PO SCH (09:37)
[2017-09-06] MEDS: MYRBETRIQ PO SCH (09:37)
[2017-09-06] MEDS: Insulin LISPRO 300 UNITS/3 ML VIAL SQ SCH ×3 (09:37→17:21)
[2017-09-06] MEDS: Aspirin Enteric Coated 81 MG Tablet PO SCH (09:37)
[2017-09-06] MEDS: (Fish Oil 1,000 Mg Softgel) PO SCH (09:37)
--- NOTE | 2017-09-06 13:32 | Cardiology Progress Note ---
Date of Encounter: 09/06/17 Time of Encounter: 10:10 Assessment and Plan (1) Elevated troponin Current Visit: Yes Status: Acute Per cardiology: -Troponins 0.65, 0.5, 0.49. -Troponins elevated in the setting of anemia, ROSA MARIA, CHF. -Denies chest pain. -Admits to worsening shortness of breath and worsening fatigue. -ECG changes noted with flipped T waves. TTE unchanged from previous. EF 50%. There is segmental wall motion abnormality unchanged from previous. Likely demand ischemia. Cannot rule out occlusive CAD due to high risk for complication/bleeding with [facility] in the setting of acute GI bleed. Continue medical management. No heparin gtt secondary to anemia. Continue asa as tolerated. Continue statin and bb. Patient and family agree with plan. (2) CHF (congestive heart failure) Current Visit: Yes Status: Acute Per cardiology: -TTE shows low normal EF. Acute on chronic diastolic CHF. -BNP 1443. -Chest x-ray with mild pulmonary vascular congestion. -report increased shortness of breath on admission and BLE edema. -SOB resolved. Still woth BLE edema. Net positive 500 ml for stay. Strict I&O. Will give extra dose IV lasix. Repeat IV lasix as needed. Low sodium diet. Qualifiers: Congestive heart failure type: unspecified congestive heart failure type Congestive heart failure chronicity: acute Qualified Code(s): I50.9 - Heart failure, unspecified (3) Anemia Current Visit: Yes Status: Acute Per cardiology: -Noted to have worsening anemia on admission. -required transfusion. -of note, was on xarelto for "stroke prevention." Denies history of DVT, PE, or atrial fibrillation. -Management per primary and GI services Qualifiers: Anemia type: unspecified type Qualified Code(s): D64.9 - Anemia, unspecified (4) CAD (coronary artery disease) Current Visit: Yes Status: Chronic Per cardiology: -Known CAD. -[facility] 2012 with 30% proximal LAD, 40% proximal circumflex, 40% mid circumflex, 99 % mid RCA, 100% distal RCA, distal RCA fills from left collaterals. -04/2016 TTE with LVEF 50-55%, mildly dilated LV, basal inferior wall akinetic. -On asa, statin, beta gaurav. Qualifiers: Coronary Disease-Associated Artery/Lesion type: [place] artery [place] vs. transplanted heart: [place] heart Associated angina: without angina Qualified Code(s): I25.10 - Atherosclerotic heart disease of [place] coronary artery without angina pectoris Discussion w patient/family: The assessment and plan as outlined above was discussed with the patient and/or family members who expressed understanding and agreement. All questions were answered. Thank you for involving us in the care of your patient. Please call with any questions. Subjective Principal diagnosis: anemia, elevated troponin Interval history: No events overnight. Continues to deny chest pain. Objective Vital Signs, Last 4 Hours Temp Pulse Resp BP Pulse Ox 09/06/17 11:08 98.4 F 72 18 137/61 98 09/06/17 09:43 18 98 General: Conversant, No Apparent Distress HEENT: Atraumatic, Normocephaly, Mucus Membranes Moist Neck: No JVD, Normal carotid pulses Cardiac: Reg Rate and Rhythm, Normal S1 and S2, No Murmur Lungs: Normal Breath Sounds, No Wheeze, Rales, Rhonchi Neuro: Alert and responsive, No focal deficits noted Abdomen: Soft, Non-Tender Skin: No rashes noted on visualized skin Musculoskeletal: No Chest Wall Tenderness Extremities: No Clubbing, No Cyanosis, No Edema, Normal Pulses Results 09/06/17 07:20 09/06/17 07:20 Lab Results 09/05/17 09/05/17 09/06/17 18:08 18:08 07:20 WBC 12.6 H Hgb 9.9 L D 10.4 L Hct 29.8 L 31.5 L Plt Count 175 Sodium Potassium Chloride Carbon Dioxide BUN Creatinine Glucose Calcium Total Bilirubin AST ALT Alkaline Phosphatase Troponin I 0.41 H* 09/06/17 07:20 WBC Hgb Hct Plt Count Sodium 137 D Potassium 4.4 Chloride 99 Carbon Dioxide 28 BUN 44 H Creatinine 2.08 H Glucose 175 H Calcium 8.9 Total Bilirubin 0.6 AST 30 ALT 28 Alkaline Phosphatase 48 Troponin I - Imaging and Cardiology Echo: report reviewed Consult Discharge Plan - Plan Referrals: Mary Donahue MD [Primary Care Provider] -
--- NOTE | 2017-09-06 15:54 | Internal Med Progress Note ---
Date of Encounter: 09/06/17 Time of Encounter: 15:52 - Assessment and plan (1) GI bleed Current Visit: Yes Status: Acute Qualifiers: GI bleed type/associated pathology: unspecified gastrointestinal hemorrhage type Qualified Code(s): K92.2 - Gastrointestinal hemorrhage, unspecified (2) CHF (congestive heart failure) Current Visit: Yes Status: Acute Qualifiers: Congestive heart failure type: unspecified congestive heart failure type Congestive heart failure chronicity: acute Qualified Code(s): I50.9 - Heart failure, unspecified (3) CAD (coronary artery disease) Current Visit: Yes Status: Chronic Qualifiers: Coronary Disease-Associated Artery/Lesion type: [place] artery [place] vs. transplanted heart: [place] heart Associated angina: without angina Qualified Code(s): I25.10 - Atherosclerotic heart disease of [place] coronary artery without angina pectoris (4) DM2 (diabetes mellitus, type 2) Current Visit: Yes Status: Chronic Qualifiers: Diabetes mellitus complication status: without complication Diabetes mellitus senior care insulin use: without manager long term care use Qualified Code(s): E11.9 - Type 2 diabetes mellitus without complications (5) HTN (hypertension) Current Visit: Yes Status: Acute Qualifiers: Hypertension type: unspecified secondary hypertension Qualified Code(s): I15.9 - Secondary hypertension, unspecified; I15 - Secondary hypertension (6) CKD (chronic kidney disease) Current Visit: Yes Status: Chronic Qualifiers: Chronic kidney disease stage: stage 3 (moderate) Qualified Code(s): N18.3 - Chronic kidney disease, stage 3 (moderate) - Subjective Interval history: Mr. Bryson Stockton is a 77-year-old male past medical history significant for diabetes hypertension dyslipidemia coronary artery disease. Patient presented with GI bleed contributing to demand ischemia/type II non-STEMI. Cardiology has seen the patient. Plan to keep his hemoglobin around 10. Chest x-ray was noted and mild CHF on admission and now on Lasix. Of anticoagulants. GI workup pending. At this time is symptomatic. 09/06 no chest pain shortness of breath or any other complaints. No active bleed. Hemoglobin has rise in 10.4. Clear liquid is okay. Since patient is a high risk GI is not planning any EGD at this time. Patient has gained some weight and therefore Lasix by mouth will be substituted by Lasix 40 IV twice a day and his electrolytes will be watched closely. Currently he is on beta gaurav aspirin and statin. Low-dose nitrate can be added if he becomes symptomatic. Due to active bleed cardiology workup is also on hold. - Constitutional Vitals: Temp Pulse Resp BP Pulse Ox 98.1 F 75 16 133/52 98 09/06/17 15:37 09/06/17 15:37 09/06/17 15:37 09/06/17 15:37 09/06/17 15:37 General appearance: Present: A&O X 3 - Head Head exam: Present: atraumatic, normocephalic - Eye Eye exam: Present: PERRL, conjuntiva pink, sclera anicteric Pupils: Present: PERRL - Neck Neck exam general surgery: Present: supple, trachea midline. Absent: lymphadenopathy - Respiratory Respiratory exam: Present: CTAB. Absent: accessory muscle use, rales, rhonchi, wheezes - Cardiovascular Cardiovascular exam: Present: RRR, +S1, +S2. Absent: diastolic murmur, gallop, rubs, systolic murmur - GI/Abdominal GI/Abdominal exam: Present: normal bowel sounds, soft, no peritoneal signs. Absent: distended, tenderness - Extremities Exam Extremities exam: Present: warm, radial pulses palpable and symmetrical. Absent : calf tenderness, cyanotic, pedal edema - Neurological Exam Neurological exam: Present: CN II-XII intact, oriented X3, no focal deficits. Absent: pronater drift, facial droop, speech deficit - Skin Skin exam: Present: dry, intact Internal Medicine: Result - Labs CBC & Chem 7: 09/06/17 07:20 09/06/17 07:20 Labs: Short CBC 09/05/17 09/06/17 Range/Units 18:08 07:20 WBC 12.6 H (4.3-11.1) K/mcL Hgb 9.9 L D 10.4 L (12.9-16.9) g/dL Hct 29.8 L 31.5 L (37.5-50.1) % Plt Count 175 (140-400) K/mcL Neutrophils # 10.9 H (1.6-8.9) K/mcL BMP 09/06/17 07:20 Sodium 137 D Potassium 4.4 Chloride 99 Carbon Dioxide 28 BUN 44 H Creatinine 2.08 H Glucose 175 H Calcium 8.9 Cardiac Enzymes 09/05/17 Range/Units 18:08 Troponin I 0.41 H* (0-0.03) ng/mL Liver Function 09/06/17 Range/Units 07:20 Total Bilirubin 0.6 (0.2-1.2) mg/dL AST 30 (5-34) Units/L ALT 28 (0-55) Units/L Alkaline Phosphatase 48 (38-126) Units/L Albumin 2.9 L (3.5-5.0) g/dL - ABG Interpretation ABG results: PT/INR, D-dimer PT 21.4 Seconds (9.4-12.1) H 09/04/17 15:28 - Impressions Impressions Echocardiogram 09/05/17 22:29 Impressions: LVEF 55%. Normal LV chamber size, wall thickness and overall function. Mild segmental left ventricular systolic dysfunction. Moderate left ventricular diastolic dysfunction. Normal right ventricular structure and function. Mildly to moderately calcified aortic valve leaflets. No aortic stenosis by Doppler. Visually, there appears to be at least mild aortic stenosis. Mild mitral regurgitation. Mild-moderate mitral stenosis. Mean gradient 5 mmHg, HR 71 bpm. Mild pulmonary hypertension. Estimated RVSP is 41 mmHg. Left Ventricular Wall Motion: Rest Echo Findings The basal inferior wall was hypokinetic. All other wall segments showed normal motion. Findings: Study Quality * Technically adequate exam. ECG Findings * Normal sinus rhythm. Left Ventricle * LVEF 55%. * Normal LV chamber size, wall thickness and function. * Mild segmental left ventricular systolic dysfunction. * Moderate left ventricular diastolic dysfunction. Right Ventricle * Normal right ventricular structure and function. Left Atrium * Moderately dilated left atrium. Right Atrium * Mildly dilated right atrium. Aortic Valve * Trileaflet aortic valve. * Mildly to moderately calcified aortic valve leaflets. * No aortic regurgitation. * No aortic stenosis by Doppler. Visually, there appears to be at least mild aortic stenosis. Mitral Valve * Mildly thickened mitral valve leaflets. * Mild to moderate mitral annular calcification. * Mild mitral regurgitation. * Mild-moderate mitral stenosis. Mean gradient 5 mmHg, HR 71 bpm. Tricuspid Valve * Normal tricuspid valve structure and function. * Trace tricuspid regurgitation. * Mild pulmonary hypertension. * Estimated RVSP is 41 mmHg. * Estimated RA pressure is 5 mmHg. Pulmonic Valve * Pulmonic valve is not well visualized. * No pulmonic regurgitation. Aorta * Normally sized aortic root. Pericardium * The pericardium appears normal. IVC * Normal IVC dimensions and inspiratory collapse. Pulmonary Artery * Normal visualized portions of the main pulmonary artery. Consult Discharge Plan - Plan Referrals: Mary Donahue MD [Primary Care Provider] -
[2017-09-06] MEDS: Furosemide 40 MG/4 ML VIAL IVP SCH (17:17)
[2017-09-06] MEDS: traZODone 50 MG TABLET PO SCH (21:02)
[2017-09-07 03:37] LABS: Basophils % 0.2 %; Eosinophils # 0.1 K/mcL (0.0-0.6); Eosinophils % 1.4 %; Hemoglobin 10.6 g/dL (12.9-16.9); Immature Granulocytes % 0.4 % (0-4); Lymphocytes # 1.1 K/mcL (0.6-4.6); Mean Corpuscular HGB Conc 33.1 g/dL (31.6-35.5); Mean Corpuscular Hemoglobin 31.3 pg (28.0-33.3); Mean Corpuscular Volume 94.4 fL (83.0-100.0); Mean Platelet Volume 9.9 fL (9.4-12.4); Monocytes # 0.8 K/mcL (0.0-1.3); Monocytes % 7.6 %; Neutrophils # 7.8 K/mcL (1.6-8.9); Platelet Count 184 K/mcL (140-400); Red Blood Count 3.39 M/mcL (4.19-5.50); Red Cell Distribution Width 14.9 % (11.5-14.5); Segmented Neutrophils % 79.4 %
[2017-09-07 03:47] LABS: Albumin 2.8 g/dL (3.5-5.0); Albumin/Globulin Ratio 0.7 (1.1-2.2); Bilirubin,Total 0.9 mg/dL (0.2-1.2); Calcium 8.8 mg/dL (8.6-10.8); Potassium 3.6 mEq/L (3.5-4.5); Total Protein 6.8 g/dL (6.0-8.3)
[2017-09-07] MEDS: Ipratropium/Albuterol Neb 3 ML IH SCH ×4 (04:03→23:11)
[2017-09-07] MEDS: Pantoprazole 40 MG VIAL IVP SCH ×2 (06:32→17:56)
[2017-09-07] MEDS: Gabapentin 300 MG CAPSULE PO SCH ×2 (09:01→22:17)
[2017-09-07] MEDS: Metoprolol XL (24 HR) Succ 25 MG TAB.ER.24H PO SCH ×2 (09:01→09:02)
[2017-09-07] MEDS: Aspirin Enteric Coated 81 MG Tablet PO SCH (09:02)
[2017-09-07] MEDS: Insulin LISPRO 300 UNITS/3 ML VIAL SQ SCH ×3 (09:02→17:56)
[2017-09-07] MEDS: Furosemide 40 MG/4 ML VIAL IVP SCH ×2 (09:02→17:56)
[2017-09-07] MEDS: (Fish Oil 1,000 Mg Softgel) PO SCH (09:03)
[2017-09-07] MEDS: MYRBETRIQ PO SCH (09:03)
[2017-09-07] MEDS: *HR* OxyCODONE/APAP 7.5/325 TABLET PO PRN ×2 (09:13→22:17)
--- NOTE | 2017-09-07 12:06 | Cardiology Progress Note ---
Date of Encounter: 09/07/17 Time of Encounter: 12:04 Assessment and Plan (1) Elevated troponin Current Visit: Yes Status: Acute Per cardiology: -Troponins 0.65, 0.5, 0.49. -Troponins elevated in the setting of anemia, ROSA MARIA, CHF. Demand ischemia. -Denies chest pain. -Admits to worsening shortness of breath and worsening fatigue. -ECG changes noted with flipped T waves. Non-specific. TTE unchanged from previous. EF 50%. There is segmental wall motion abnormality unchanged from previous. Likely demand ischemia. Cannot rule out occlusive CAD due to high risk for complication/bleeding with [facility] in the setting of acute GI bleed. Continue medical management. No heparin gtt secondary to anemia. Continue asa as tolerated. Continue statin and bb. Patient and family agree with plan. Call with questions. (2) CHF (congestive heart failure) Current Visit: Yes Status: Acute Per cardiology: -TTE shows low normal EF. Acute on chronic diastolic CHF. -BNP 1443. -Chest x-ray with mild pulmonary vascular congestion. -report increased shortness of breath on admission and BLE edema. -SOB resolved. Still edema only in left leg. Net positive 1 ml for stay. LLE doppler negative for DVT. Continue IV lasix as tolerated. Strict I&O. Low sodium diet. Qualifiers: Congestive heart failure type: unspecified congestive heart failure type Congestive heart failure chronicity: acute Qualified Code(s): I50.9 - Heart failure, unspecified (3) Anemia Current Visit: Yes Status: Acute Per cardiology: -Noted to have worsening anemia on admission. -required transfusion. -of note, was on xarelto for "stroke prevention." Denies history of DVT, PE, or atrial fibrillation. -Management per primary and GI services Qualifiers: Anemia type: unspecified type Qualified Code(s): D64.9 - Anemia, unspecified (4) CAD (coronary artery disease) Current Visit: Yes Status: Chronic Per cardiology: -Known CAD. -[facility] 2012 with 30% proximal LAD, 40% proximal circumflex, 40% mid circumflex, 99 % mid RCA, 100% distal RCA, distal RCA fills from left collaterals. -04/2016 TTE with LVEF 50-55%, mildly dilated LV, basal inferior wall akinetic. -On asa, statin, beta gaurav. Qualifiers: Coronary Disease-Associated Artery/Lesion type: [place] artery [place] vs. transplanted heart: [place] heart Associated angina: without angina Qualified Code(s): I25.10 - Atherosclerotic heart disease of [place] coronary artery without angina pectoris Discussion w patient/family: The assessment and plan as outlined above was discussed with the patient and/or family members who expressed understanding and agreement. All questions were answered. Thank you for involving us in the care of your patient. Please call with any questions. Subjective Principal diagnosis: anemia, elevated troponin Interval history: No events overnight. Continues to deny chest pain. No cardiac complaints. Reported to have no signs of active bleeding. Objective Vital Signs, Last 4 Hours Resp Pulse Ox 09/07/17 10:55 18 89 General: Conversant, No Apparent Distress HEENT: Atraumatic, Normocephaly, Mucus Membranes Moist Neck: No JVD, Normal carotid pulses Cardiac: Reg Rate and Rhythm, Normal S1 and S2, No Murmur Lungs: Normal Breath Sounds, No Wheeze, Rales, Rhonchi Neuro: Alert and responsive, No focal deficits noted Abdomen: Soft, Other (mildly tender to palpitation. ) Skin: No rashes noted on visualized skin Musculoskeletal: No Chest Wall Tenderness Extremities: No Clubbing, No Cyanosis, No Edema, Normal Pulses Results 09/07/17 03:05 09/07/17 03:05 Lab Results 09/07/17 09/07/17 03:05 03:05 WBC 9.9 Hgb 10.6 L Hct 32.0 L Plt Count 184 Sodium 138 Potassium 3.6 Chloride 94 L Carbon Dioxide 34 H BUN 38 H Creatinine 1.87 H Glucose 183 H Calcium 8.8 Total Bilirubin 0.9 AST 24 ALT 28 Alkaline Phosphatase 47 - Imaging and Cardiology Echo: report reviewed - VTE Documentation of Mechanical Device: Intermittent pneumatic compression device Consult Discharge Plan - Plan Referrals: Mary Donahue MD [Primary Care Provider] -
--- NOTE | 2017-09-07 17:18 | Internal Med Progress Note ---
Date of Encounter: 09/07/17 Time of Encounter: 17:17 - Assessment and plan (1) GI bleed Current Visit: Yes Status: Acute Qualifiers: GI bleed type/associated pathology: unspecified gastrointestinal hemorrhage type Qualified Code(s): K92.2 - Gastrointestinal hemorrhage, unspecified (2) CHF (congestive heart failure) Current Visit: Yes Status: Acute Qualifiers: Congestive heart failure type: unspecified congestive heart failure type Congestive heart failure chronicity: acute Qualified Code(s): I50.9 - Heart failure, unspecified (3) CAD (coronary artery disease) Current Visit: Yes Status: Chronic Qualifiers: Coronary Disease-Associated Artery/Lesion type: [place] artery [place] vs. transplanted heart: [place] heart Associated angina: without angina Qualified Code(s): I25.10 - Atherosclerotic heart disease of [place] coronary artery without angina pectoris (4) DM2 (diabetes mellitus, type 2) Current Visit: Yes Status: Chronic Qualifiers: Diabetes mellitus complication status: without complication Diabetes mellitus assisted insulin use: without laborer marine terminal use Qualified Code(s): E11.9 - Type 2 diabetes mellitus without complications (5) HTN (hypertension) Current Visit: Yes Status: Acute Qualifiers: Hypertension type: unspecified secondary hypertension Qualified Code(s): I15.9 - Secondary hypertension, unspecified; I15 - Secondary hypertension (6) CKD (chronic kidney disease) Current Visit: Yes Status: Chronic Qualifiers: Chronic kidney disease stage: stage 3 (moderate) Qualified Code(s): N18.3 - Chronic kidney disease, stage 3 (moderate) - Subjective Interval history: Mr. Bryson Stockton is a 77-year-old male past medical history significant for diabetes hypertension dyslipidemia coronary artery disease. Patient presented with GI bleed contributing to demand ischemia/type II non-STEMI. Cardiology has seen the patient. Plan to keep his hemoglobin around 10. Chest x-ray was noted and mild CHF on admission and now on Lasix. Of anticoagulants. GI workup pending. At this time is symptomatic. 09/06 no chest pain shortness of breath or any other complaints. No active bleed. Hemoglobin has rise in 10.4. Clear liquid is okay. Since patient is a high risk GI is not planning any EGD at this time. Patient has gained some weight and therefore Lasix by mouth will be substituted by Lasix 40 IV twice a day and his electrolytes will be watched closely. Currently he is on beta gaurav aspirin and statin. Low-dose nitrate can be added if he becomes symptomatic. Due to active bleed cardiology workup is also on hold. 09/07 stable no change hemoglobin is stable can take full diet cardiology and GI are not planning any procedure detailed discussion with family. Patient has been having diarrhea since yesterday stool C. difficile requested - Constitutional Vitals: Temp Pulse Resp BP Pulse Ox 98.3 F 60 17 134/50 97 09/07/17 07:00 09/07/17 15:00 09/07/17 15:00 09/07/17 15:00 09/07/17 15:00 General appearance: Present: A&O X 3 - Head Head exam: Present: atraumatic, normocephalic - Eye Eye exam: Present: PERRL, conjuntiva pink, sclera anicteric Pupils: Present: PERRL - Neck Neck exam general surgery: Present: supple, trachea midline. Absent: lymphadenopathy - Respiratory Respiratory exam: Present: CTAB. Absent: accessory muscle use, rales, rhonchi, wheezes - Cardiovascular Cardiovascular exam: Present: RRR, +S1, +S2. Absent: diastolic murmur, gallop, rubs, systolic murmur - GI/Abdominal GI/Abdominal exam: Present: normal bowel sounds, soft, no peritoneal signs. Absent: distended, tenderness - Extremities Exam Extremities exam: Present: warm, radial pulses palpable and symmetrical. Absent : calf tenderness, cyanotic, pedal edema - Neurological Exam Neurological exam: Present: CN II-XII intact, oriented X3, no focal deficits. Absent: pronater drift, facial droop, speech deficit - Skin Skin exam: Present: dry, intact Internal Medicine: Result - Labs CBC & Chem 7: 09/07/17 03:05 09/07/17 03:05 Labs: Short CBC 09/07/17 Range/Units 03:05 WBC 9.9 (4.3-11.1) K/mcL Hgb 10.6 L (12.9-16.9) g/dL Hct 32.0 L (37.5-50.1) % Plt Count 184 (140-400) K/mcL Neutrophils # 7.8 (1.6-8.9) K/mcL BMP 09/07/17 03:05 Sodium 138 Potassium 3.6 Chloride 94 L Carbon Dioxide 34 H BUN 38 H Creatinine 1.87 H Glucose 183 H Calcium 8.8 Liver Function 09/07/17 Range/Units 03:05 Total Bilirubin 0.9 (0.2-1.2) mg/dL AST 24 (5-34) Units/L ALT 28 (0-55) Units/L Alkaline Phosphatase 47 (38-126) Units/L Albumin 2.8 L (3.5-5.0) g/dL - ABG Interpretation ABG results: PT/INR, D-dimer PT 21.4 Seconds (9.4-12.1) H 09/04/17 15:28 - VTE Documentation of Mechanical Device: Intermittent pneumatic compression device Consult Discharge Plan - Plan Referrals: Mary Donahue MD [Primary Care Provider] -
[2017-09-07] MEDS: traZODone 50 MG TABLET PO SCH (22:18)
[2017-09-07] MEDS: Melatonin 3 MG TABLET PO SCH (22:19)
[2017-09-08] MEDS: Ipratropium/Albuterol Neb 3 ML IH SCH ×4 (03:36→21:17)
[2017-09-08 04:11] LABS: Basophils % 0.2 %; Eosinophils # 0.1 K/mcL (0.0-0.6); Eosinophils % 0.6 %; Hemoglobin 11.1 g/dL (12.9-16.9); Immature Granulocytes % 0.4 % (0-4); Lymphocytes # 0.7 K/mcL (0.6-4.6); Lymphocytes % 5.6 %; Mean Corpuscular HGB Conc 32.6 g/dL (31.6-35.5); Mean Platelet Volume 9.8 fL (9.4-12.4); Monocytes # 0.7 K/mcL (0.0-1.3); Monocytes % 5.6 %; Neutrophils # 10.4 K/mcL (1.6-8.9); Platelet Count 196 K/mcL (140-400); Red Blood Count 3.58 M/mcL (4.19-5.50); Red Cell Distribution Width 14.4 % (11.5-14.5); Segmented Neutrophils % 87.6 %
[2017-09-08 04:28] LABS: Albumin 2.8 g/dL (3.5-5.0); Albumin/Globulin Ratio 0.7 (1.1-2.2); Bilirubin,Total 0.9 mg/dL (0.2-1.2); Calcium 8.7 mg/dL (8.6-10.8); Globulin 4.3 g/dL (2.4-3.5); Total Protein 7.1 g/dL (6.0-8.3)
[2017-09-08] MEDS: Pantoprazole 40 MG VIAL IVP SCH ×2 (06:04→17:41)
[2017-09-08] MEDS: Insulin LISPRO 300 UNITS/3 ML VIAL SQ SCH ×3 (09:25→17:41)
[2017-09-08] MEDS: (Fish Oil 1,000 Mg Softgel) PO SCH (10:01)
[2017-09-08] MEDS: MYRBETRIQ PO SCH (10:02)
[2017-09-08] MEDS: Furosemide 40 MG/4 ML VIAL IVP SCH ×2 (10:07→17:41)
[2017-09-08] MEDS: Aspirin Enteric Coated 81 MG Tablet PO SCH (10:08)
[2017-09-08] MEDS: Gabapentin 300 MG CAPSULE PO SCH ×2 (10:08→21:29)
--- NOTE | 2017-09-08 10:30 | Cardiology Progress Note ---
Date of Encounter: 09/08/17 Time of Encounter: 10:28 Assessment and Plan (1) Elevated troponin Current Visit: Yes Status: Acute Trop trending down: 0.63 > 0.50 > 0.49 > 0.41 Likely elevated d/t combination of anemia, ROSA MARIA and CHF. Denies any new chest pain, SOB, palpitations, diaphoresis, n/v, LE edema EKG review demonstrates inferior and anterolateral T wave inversions that are slightly improved on recheck ECHO demonstrated EF 50% with unchanged wall motion abnormality. Moderate LV diastolic dysfunction. Moderate calcified aortic valve leaflets which correlate to his grade II DINORA. 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 At this time, we are unable to act aggressively d/t acute GI bleed to rule out occlusive CAD. Medical management - ASA, BB and statin therapy Patient is a moderate risk for colonoscopy to investigate bleed of which appears to be a necessary procedure. Discussed management with and she is in agreement. (2) CHF (congestive heart failure) Current Visit: Yes Status: Acute TTE shows EF 50%. Acute on chronic diastolic CHF. BNP 1443 Chest x-ray with mild pulmonary vascular congestion. SOB resolved. Edema improved on LLE. LLE doppler negative for DVT. Continue IV lasix as tolerated. Strict I&O. Low sodium diet. Qualifiers: Congestive heart failure type: unspecified congestive heart failure type Congestive heart failure chronicity: acute Qualified Code(s): I50.9 - Heart failure, unspecified (3) Anemia Current Visit: Yes Status: Acute Hgb and Hct improving to 11.1 and 34 respectively. VSS. -Management per primary and GI services Qualifiers: Anemia type: unspecified type Qualified Code(s): D64.9 - Anemia, unspecified (4) CAD (coronary artery disease) Current Visit: Yes Status: Chronic See above. Known CAD [facility] 2012 with 30% proximal LAD, 40% proximal circumflex, 40% mid circumflex, 99 % mid RCA, 100% distal RCA, distal RCA fills from left collaterals. On asa, statin, beta gaurav. Qualifiers: Coronary Disease-Associated Artery/Lesion type: [place] artery [place] vs. transplanted heart: [place] heart Associated angina: without angina Qualified Code(s): I25.10 - Atherosclerotic heart disease of [place] coronary artery without angina pectoris Discussion w patient/family: The assessment and plan as outlined above was discussed with the patient and/or family members who expressed understanding and agreement. All questions were answered. Thank you for involving us in the care of your patient. Please call with any questions. Subjective Principal diagnosis: anemia, elevated troponin Interval history: Patient in lying bed conversant this morning with present at bedside. Denies any new symptoms. No chest pain, SOB, lightheadedness, palpitations, diaphoresis, LE edema. Objective Vital Signs, Last 4 Hours Temp Pulse Resp BP Pulse Ox 09/08/17 07:17 98.2 F 61 12 112/44 98 General: Conversant, No Apparent Distress HEENT: Atraumatic, Normocephaly, Mucus Membranes Moist Neck: No JVD, Normal carotid pulses Cardiac: Reg Rate and Rhythm, Other (Grade II DINORA heard best at right 2nd ICS) Lungs: Normal Breath Sounds, No Wheeze, Rales, Rhonchi Neuro: Other (residual LUE weakness and flexor hand contracture) Abdomen: Soft, Non-Tender Skin: No rashes noted on visualized skin Musculoskeletal: No Chest Wall Tenderness Extremities: No Clubbing, No Cyanosis, No Edema, Normal Pulses Results 09/08/17 03:25 09/08/17 03:25 Lab Results 09/08/17 09/08/17 03:25 03:25 WBC 11.8 H Hgb 11.1 L Hct 34.0 L Plt Count 196 Sodium 138 Potassium 4.0 Chloride 94 L Carbon Dioxide 35 H BUN 34 H Creatinine 2.06 H Glucose 294 H Calcium 8.7 Total Bilirubin 0.9 AST 19 ALT 26 Alkaline Phosphatase 51 - Imaging and Cardiology Echo: report reviewed - EKG Interpretation EKG results cardiology: personally reviewed (anterolateral and inferior T wave inversions that is slightly improved from previous) - VTE Documentation of Mechanical Device: Intermittent pneumatic compression device Consult Discharge Plan - Plan Referrals: Mary Donahue MD [Primary Care Provider] -
--- NOTE | 2017-09-08 15:10 | Internal Med Progress Note ---
Date of Encounter: 09/08/17 Time of Encounter: 15:06 - Assessment and plan (1) GI bleed Current Visit: Yes Status: Acute Qualifiers: GI bleed type/associated pathology: unspecified gastrointestinal hemorrhage type Qualified Code(s): K92.2 - Gastrointestinal hemorrhage, unspecified (2) CHF (congestive heart failure) Current Visit: Yes Status: Acute Qualifiers: Congestive heart failure type: unspecified congestive heart failure type Congestive heart failure chronicity: acute Qualified Code(s): I50.9 - Heart failure, unspecified (3) CAD (coronary artery disease) Current Visit: Yes Status: Chronic Qualifiers: Coronary Disease-Associated Artery/Lesion type: [place] artery [place] vs. transplanted heart: [place] heart Associated angina: without angina Qualified Code(s): I25.10 - Atherosclerotic heart disease of [place] coronary artery without angina pectoris (4) DM2 (diabetes mellitus, type 2) Current Visit: Yes Status: Chronic Qualifiers: Diabetes mellitus complication status: without complication Diabetes mellitus custodial insulin use: without termite technician use Qualified Code(s): E11.9 - Type 2 diabetes mellitus without complications (5) HTN (hypertension) Current Visit: Yes Status: Acute Qualifiers: Hypertension type: unspecified secondary hypertension Qualified Code(s): I15.9 - Secondary hypertension, unspecified; I15 - Secondary hypertension (6) CKD (chronic kidney disease) Current Visit: Yes Status: Chronic Qualifiers: Chronic kidney disease stage: stage 3 (moderate) Qualified Code(s): N18.3 - Chronic kidney disease, stage 3 (moderate) - Subjective Interval history: Mr. Bryson Stockton is a 77-year-old male past medical history significant for diabetes hypertension dyslipidemia coronary artery disease. Patient presented with GI bleed contributing to demand ischemia/type II non-STEMI. Cardiology has seen the patient. Plan to keep his hemoglobin around 10. Chest x-ray was noted and mild CHF on admission and now on Lasix. Of anticoagulants. GI workup pending. At this time is symptomatic. 09/06 no chest pain shortness of breath or any other complaints. No active bleed. Hemoglobin has rise in 10.4. Clear liquid is okay. Since patient is a high risk GI is not planning any EGD at this time. Patient has gained some weight and therefore Lasix by mouth will be substituted by Lasix 40 IV twice a day and his electrolytes will be watched closely. Currently he is on beta gaurav aspirin and statin. Low-dose nitrate can be added if he becomes symptomatic. Due to active bleed cardiology workup is also on hold. 09/07 stable no change hemoglobin is stable can take full diet cardiology and GI are not planning any procedure detailed discussion with family. Patient has been having diarrhea since yesterday stool C. difficile requested 09/08 diarrhea has stopped spontaneously. C. difficile pending. WBC count 11.8 but abdominal examination is quite unremarkable. Hemoglobin is slowly rising. Cardiology has changed recommendation and they cleared him moderate risk but okay with EGD. Gastroenterology is consulted. Continue Protonix. Patient is tolerating diet now. Cardiology has recommended maximizing cardiac treatment including beta gaurav aspirin statins and Imdur. Clinically he is quite stable has no chest pain no shortness of breath tolerating full diet seems to be doing very well. He had some diarrhea yesterday but that has resolved already. Patient is on IV Lasix 40 twice a day. - Constitutional Vitals: Temp Pulse Resp BP Pulse Ox 97.9 F 69 18 114/48 94 09/08/17 11:53 09/08/17 11:53 09/08/17 11:53 09/08/17 11:53 09/08/17 11:53 General appearance: Present: A&O X 3 - Head Head exam: Present: atraumatic, normocephalic - Eye Eye exam: Present: PERRL, conjuntiva pink, sclera anicteric Pupils: Present: PERRL - Neck Neck exam general surgery: Present: supple, trachea midline. Absent: lymphadenopathy - Respiratory Respiratory exam: Present: CTAB. Absent: accessory muscle use, rales, rhonchi, wheezes - Cardiovascular Cardiovascular exam: Present: RRR, +S1, +S2. Absent: diastolic murmur, gallop, rubs, systolic murmur - GI/Abdominal GI/Abdominal exam: Present: normal bowel sounds, soft, no peritoneal signs. Absent: distended, tenderness - Extremities Exam Extremities exam: Present: warm, radial pulses palpable and symmetrical. Absent : calf tenderness, cyanotic, pedal edema - Neurological Exam Neurological exam: Present: CN II-XII intact, oriented X3, no focal deficits. Absent: pronater drift, facial droop, speech deficit - Skin Skin exam: Present: dry, intact Internal Medicine: Result - Labs CBC & Chem 7: 09/08/17 03:25 09/08/17 03:25 Labs: Short CBC 09/08/17 Range/Units 03:25 WBC 11.8 H (4.3-11.1) K/mcL Hgb 11.1 L (12.9-16.9) g/dL Hct 34.0 L (37.5-50.1) % Plt Count 196 (140-400) K/mcL Neutrophils # 10.4 H (1.6-8.9) K/mcL BMP 09/08/17 03:25 Sodium 138 Potassium 4.0 Chloride 94 L Carbon Dioxide 35 H BUN 34 H Creatinine 2.06 H Glucose 294 H Calcium 8.7 Liver Function 09/08/17 Range/Units 03:25 Total Bilirubin 0.9 (0.2-1.2) mg/dL AST 19 (5-34) Units/L ALT 26 (0-55) Units/L Alkaline Phosphatase 51 (38-126) Units/L Albumin 2.8 L (3.5-5.0) g/dL - ABG Interpretation ABG results: PT/INR, D-dimer PT 21.4 Seconds (9.4-12.1) H 09/04/17 15:28 - VTE Documentation of Mechanical Device: Intermittent pneumatic compression device Consult Discharge Plan - Plan Referrals: Mary Donahue MD [Primary Care Provider] -
--- NOTE | 2017-09-08 16:44 | Electrocardiograph Report ---
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
[2017-09-08] MEDS: traZODone 50 MG TABLET PO SCH (21:29)
[2017-09-08] MEDS: Melatonin 3 MG TABLET PO SCH (21:29)
[2017-09-08] MEDS: Insulin DETEMIR 100 UNIT/ML X5UNITS SQ SCH (21:30)
[2017-09-09] MEDS: Ipratropium/Albuterol Neb 3 ML IH SCH ×4 (04:11→21:24)
[2017-09-09 06:17] LABS: Basophils % 0.3 %; Eosinophils # 0.6 K/mcL (0.0-0.6); Eosinophils % 7.1 %; Hematocrit 35.1 % (37.5-50.1); Hemoglobin 11.4 g/dL (12.9-16.9); Immature Granulocytes % 0.6 % (0-4); Lymphocytes # 1.2 K/mcL (0.6-4.6); Lymphocytes % 12.9 %; Mean Corpuscular HGB Conc 32.5 g/dL (31.6-35.5); Mean Corpuscular Hemoglobin 30.6 pg (28.0-33.3); Mean Corpuscular Volume 94.1 fL (83.0-100.0); Mean Platelet Volume 9.6 fL (9.4-12.4); Monocytes # 0.6 K/mcL (0.0-1.3); Neutrophils # 6.4 K/mcL (1.6-8.9); Platelet Count 197 K/mcL (140-400); Red Blood Count 3.73 M/mcL (4.19-5.50); Red Cell Distribution Width 14.2 % (11.5-14.5); Segmented Neutrophils % 72.1 %
[2017-09-09 06:28] LABS: Albumin 2.7 g/dL (3.5-5.0); Albumin/Globulin Ratio 0.6 (1.1-2.2); Bilirubin,Total 0.7 mg/dL (0.2-1.2); Calcium 8.8 mg/dL (8.6-10.8); Globulin 4.4 g/dL (2.4-3.5); Potassium 3.6 mEq/L (3.5-4.5); Total Protein 7.1 g/dL (6.0-8.3)
[2017-09-09] MEDS: Pantoprazole 40 MG VIAL IVP SCH ×2 (06:28→17:51)
[2017-09-09] MEDS: Gabapentin 300 MG CAPSULE PO SCH ×2 (09:40→21:57)
[2017-09-09] MEDS: Isosorbide MONOnitrate (24 HR) 30 MG TAB.ER.24H PO SCH (09:40)
[2017-09-09] MEDS: Aspirin Enteric Coated 81 MG Tablet PO SCH (09:40)
[2017-09-09] MEDS: Metoprolol XL (24 HR) Succ 25 MG TAB.ER.24H PO SCH (09:41)
[2017-09-09] MEDS: (Fish Oil 1,000 Mg Softgel) PO SCH (09:41)
[2017-09-09] MEDS: Furosemide 40 MG/4 ML VIAL IVP SCH (09:41)
[2017-09-09] MEDS: MYRBETRIQ PO SCH (09:42)
[2017-09-09] MEDS: Insulin LISPRO 300 UNITS/3 ML VIAL SQ SCH ×3 (09:55→17:52)
--- NOTE | 2017-09-09 13:58 | Internal Med Progress Note ---
Date of Encounter: 09/09/17 Time of Encounter: 12:10 - Assessment and plan (1) Atrial fibrillation Current Visit: Yes Status: Acute Assessment and plan: Patient developed new onset of atrial fibrillation with rapid ventricular response, heart rate in the 120s to 150s. Did not respond to one dose of IV Cardizem push 10 mg. We will start IV Cardizem drip per protocol. Echocardiogram reviewed, shows preserved ejection fraction, moderate left went for diastolic dysfunction, mild to moderate mitral stenosis. Patient has been on anticoagulation with Xarelto, continue to hold until GI workup is complete. Qualifiers: Atrial fibrillation type: paroxysmal Qualified Code(s): I48.0 - Paroxysmal atrial fibrillation (2) CKD (chronic kidney disease) Current Visit: Yes Status: Chronic Assessment and plan: Serum creatinine currently at baseline, around 2. Continue to monitor closely. Qualifiers: Chronic kidney disease stage: stage 3 (moderate) Qualified Code(s): N18.3 - Chronic kidney disease, stage 3 (moderate) (3) DM2 (diabetes mellitus, type 2) Current Visit: Yes Status: Chronic Assessment and plan: Continue Accu-Chek blood glucose monitoring with sliding scale insulin. Diabetic clear liquid diet. Qualifiers: Diabetes mellitus complication status: with unspecified complications Diabetes mellitus mcfp insulin use: without mcfp use Qualified Code( s): E11.8 - Type 2 diabetes mellitus with unspecified complications (4) Anxiety Current Visit: Yes Status: Chronic (5) History of CVA (cerebrovascular accident) Current Visit: Yes Status: Chronic Assessment and plan: With residual deficits-left hemiparesis. Supportive care. Continue aspirin and statin. (6) HTN (hypertension) Current Visit: Yes Status: Chronic Qualifiers: Hypertension type: essential hypertension Qualified Code(s): I10 - Essential (primary) hypertension (7) Elevated troponin Current Visit: Yes Status: Resolved Assessment and plan: Patient was noted to have slight troponin elevation 0.6 at admission, which trended down to 0.4 and remained stable. EKG showed new T-wave inversions in inferior and anterolateral leads, reviewed by cardiology. Cardiology evaluation appreciated. This is likely demand ischemia due to anemia, recommend no intervention like left heart catheterization due to ongoing anemia and GI bleed. Continue medical management. Telemetry monitoring. Continues to require supplemental oxygen at 3.5 L via nasal cannula, will require home oxygen evaluation prior to discharge. (8) CHF (congestive heart failure) Current Visit: Yes Status: Chronic Assessment and plan: Has been on IV Lasix, will change to by mouth Lasix. Continue fluid restriction and urine output monitoring. Continue beta gaurav. Qualifiers: Congestive heart failure type: diastolic Congestive heart failure chronicity: chronic Qualified Code(s): I50.32 - Chronic diastolic (congestive ) heart failure (9) GI bleed Current Visit: Yes Status: Acute Assessment and plan: Patient presented with bright red bleeding per rectum and noted to be on chronic anticoagulation, which has been held since admission. Received 2 units PRBC since admission and hemoglobin currently stable, 11.4 today. GI has been consulted, plan for EGD and colonoscopy tomorrow. Clear liquid diet as tolerated. Qualifiers: GI bleed type/associated pathology: unspecified gastrointestinal hemorrhage type Qualified Code(s): K92.2 - Gastrointestinal hemorrhage, unspecified (10) ROSA MARIA (acute kidney injury) Current Visit: Yes Status: Resolved (11) CAD (coronary artery disease) Current Visit: Yes Status: Chronic Qualifiers: Coronary Disease-Associated Artery/Lesion type: [place] artery [place] vs. transplanted heart: [place] heart Associated angina: without angina Qualified Code(s): I25.10 - Atherosclerotic heart disease of [place] coronary artery without angina pectoris - Subjective Interval history: Feels better; upset that he cannot eat solid food yet; no further hematochezia, no abdominal pain, melena; plan for EGD/colonoscopy tomorrow; - Constitutional Vitals: Temp Pulse Resp BP Pulse Ox 98.3 F 70 15 120/55 93 09/09/17 12:00 09/09/17 12:00 09/09/17 12:00 09/09/17 12:00 09/09/17 12:00 General appearance: Present: A&O X 3, answers questions appropriately - Respiratory Respiratory exam: Present: CTAB. Absent: accessory muscle use, rales, rhonchi, wheezes - Cardiovascular Cardiovascular exam: Present: RRR, +S1, +S2. Absent: diastolic murmur, gallop, rubs, systolic murmur - GI/Abdominal GI/Abdominal exam: Present: normal bowel sounds, soft, no peritoneal signs. Absent: distended, tenderness - Extremities Exam Extremities exam: Present: warm, radial pulses palpable and symmetrical. Absent : calf tenderness, cyanotic, pedal edema - Neurological Exam Neurological exam: Present: CN II-XII intact, oriented X3, no focal deficits, strengths equal and symetr throughout (left-sided dense hemiparesis). Absent: pronater drift, facial droop, speech deficit - Skin Skin exam: Present: dry, intact Internal Medicine: Result - Labs CBC & Chem 7: 09/09/17 05:47 09/09/17 05:47 Labs: Short CBC 09/09/17 Range/Units 05:47 WBC 8.9 (4.3-11.1) K/mcL Hgb 11.4 L (12.9-16.9) g/dL Hct 35.1 L (37.5-50.1) % Plt Count 197 (140-400) K/mcL Neutrophils # 6.4 (1.6-8.9) K/mcL BMP 09/09/17 05:47 Sodium 139 Potassium 3.6 Chloride 95 L Carbon Dioxide 36 H BUN 36 H Creatinine 2.02 H Glucose 179 H Calcium 8.8 Liver Function 09/09/17 Range/Units 05:47 Total Bilirubin 0.7 (0.2-1.2) mg/dL AST 25 (5-34) Units/L ALT 25 (0-55) Units/L Alkaline Phosphatase 50 (38-126) Units/L Albumin 2.7 L (3.5-5.0) g/dL - ABG Interpretation ABG results: PT/INR, D-dimer PT 21.4 Seconds (9.4-12.1) H 09/04/17 15:28 - VTE Documentation of Mechanical Device: Intermittent pneumatic compression device Consult Discharge Plan - Plan Referrals: aMry Donahue MD [Primary Care Provider] -
[2017-09-09] MEDS ORDERED: SODIUM CHLORIDE/NAHCO3/KCL/PEG 4,000 ML SOLN.RECON PO ONE (17:00)
[2017-09-09] MEDS: traZODone 50 MG TABLET PO SCH (21:57)
[2017-09-09] MEDS: Insulin DETEMIR 100 UNIT/ML X5UNITS SQ SCH (21:57)
[2017-09-09] MEDS: Melatonin 3 MG TABLET PO SCH (21:57)
[2017-09-10] MEDS: Metoprolol XL (24 HR) Succ 25 MG TAB.ER.24H PO SCH (03:39)
[2017-09-10 05:16] LABS: Basophils % 0.2 %; Eosinophils # 0.8 K/mcL (0.0-0.6); Eosinophils % 7.1 %; Hemoglobin 10.7 g/dL (12.9-16.9); Immature Granulocytes % 0.3 % (0-4); Lymphocytes # 1.6 K/mcL (0.6-4.6); Lymphocytes % 14.6 %; Mean Corpuscular HGB Conc 33.4 g/dL (31.6-35.5); Mean Corpuscular Hemoglobin 30.9 pg (28.0-33.3); Mean Corpuscular Volume 92.5 fL (83.0-100.0); Mean Platelet Volume 9.4 fL (9.4-12.4); Monocytes # 0.7 K/mcL (0.0-1.3); Monocytes % 6.3 %; Neutrophils # 7.6 K/mcL (1.6-8.9); Platelet Count 215 K/mcL (140-400); Red Blood Count 3.46 M/mcL (4.19-5.50); Red Cell Distribution Width 14.1 % (11.5-14.5); Segmented Neutrophils % 71.5 %
[2017-09-10 05:30] LABS: Albumin 2.7 g/dL (3.5-5.0); Albumin/Globulin Ratio 0.6 (1.1-2.2); Bilirubin,Total 0.6 mg/dL (0.2-1.2); Calcium 8.7 mg/dL (8.6-10.8); Globulin 4.2 g/dL (2.4-3.5); Total Protein 6.9 g/dL (6.0-8.3)
[2017-09-10] MEDS: Ipratropium/Albuterol Neb 3 ML IH SCH ×4 (06:28→20:37)
[2017-09-10] MEDS: Pantoprazole 40 MG VIAL IVP SCH ×2 (06:56→18:47)
--- NOTE | 2017-09-10 08:15 | Electrocardiograph Report ---
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
[2017-09-10] MEDS ORDERED: Magnesium Sulfate 2 GM in D5% in Water 100 ML IVPB ONE (08:25)
--- NOTE | 2017-09-10 09:56 | Internal Med Progress Note ---
Date of Encounter: 09/10/17 Time of Encounter: 09:15 - Assessment and plan (1) GI bleed Current Visit: Yes Status: Acute Assessment and plan: Patient presented with bright red bleeding per rectum and noted to be on chronic anticoagulation, which has been held since admission. Received 2 units PRBC since admission and hemoglobin currently stable. GI has been consulted, plan for EGD and colonoscopy today, will follow-up reports. Qualifiers: GI bleed type/associated pathology: unspecified gastrointestinal hemorrhage type Qualified Code(s): K92.2 - Gastrointestinal hemorrhage, unspecified (2) Atrial fibrillation Current Visit: Yes Status: Acute Assessment and plan: Patient developed new onset of atrial fibrillation with rapid ventricular response, has been started on IV Cardizem drip. Converted to sinus rhythm overnight, currently off Cardizem drip. Echocardiogram reviewed, shows preserved ejection fraction, moderate left went for diastolic dysfunction, mild to moderate mitral stenosis. Patient has been on anticoagulation with Xarelto, continue to hold until GI workup is complete. Qualifiers: Atrial fibrillation type: paroxysmal Qualified Code(s): I48.0 - Paroxysmal atrial fibrillation (3) CKD (chronic kidney disease) Current Visit: Yes Status: Chronic Assessment and plan: Serum creatinine currently at baseline, around 2. Continue to monitor closely. Qualifiers: Chronic kidney disease stage: stage 3 (moderate) Qualified Code(s): N18.3 - Chronic kidney disease, stage 3 (moderate) (4) DM2 (diabetes mellitus, type 2) Current Visit: Yes Status: Chronic Assessment and plan: Continue Accu-Chek blood glucose monitoring with sliding scale insulin. Diabetic clear liquid diet. Qualifiers: Diabetes mellitus complication status: with unspecified complications Diabetes mellitus termite renewal inspector insulin use: without termite renewal inspector use Qualified Code( s): E11.8 - Type 2 diabetes mellitus with unspecified complications (5) Anxiety Current Visit: Yes Status: Chronic (6) History of CVA (cerebrovascular accident) Current Visit: Yes Status: Chronic Assessment and plan: With residual deficits-left hemiparesis. Supportive care. Continue aspirin and statin. (7) HTN (hypertension) Current Visit: Yes Status: Chronic Qualifiers: Hypertension type: essential hypertension Qualified Code(s): I10 - Essential (primary) hypertension (8) Elevated troponin Current Visit: Yes Status: Resolved (9) CHF (congestive heart failure) Current Visit: Yes Status: Chronic Assessment and plan: Continue fluid restriction and urine output monitoring. Continue Lasix and beta gaurav. Qualifiers: Congestive heart failure type: diastolic Congestive heart failure chronicity: chronic Qualified Code(s): I50.32 - Chronic diastolic (congestive ) heart failure (10) ROSA MARIA (acute kidney injury) Current Visit: Yes Status: Resolved (11) CAD (coronary artery disease) Current Visit: Yes Status: Chronic Qualifiers: Coronary Disease-Associated Artery/Lesion type: [place] artery [place] vs. transplanted heart: [place] heart Associated angina: without angina Qualified Code(s): I25.10 - Atherosclerotic heart disease of [place] coronary artery without angina pectoris (12) Hypokalemia Current Visit: Yes Status: Acute Assessment and plan: Supplement with IV potassium chloride, likely due to use of diuretics. Continue to monitor closely. (13) Hypomagnesemia Current Visit: Yes Status: Acute Assessment and plan: Supplement with IV magnesium sulfate. Due to diuretic use. Continue to monitor closely. - Subjective Interval history: Denies new complaints; awaiting EGD and colonoscopy today; no chest or abdominal pain, no dyspnea; converted to sinus rhythm last night and currently off IV Cardizem drip. - Constitutional Vitals: Temp Pulse Resp BP Pulse Ox 98 F 61 16 127/47 95 09/10/17 07:47 09/10/17 07:47 09/10/17 07:47 09/10/17 07:47 09/10/17 07:47 General appearance: Present: A&O X 3, answers questions appropriately - Respiratory Respiratory exam: Present: CTAB. Absent: accessory muscle use, rales, rhonchi, wheezes - Cardiovascular Cardiovascular exam: Present: RRR, +S1, +S2, systolic murmur. Absent: diastolic murmur, gallop, rubs - GI/Abdominal GI/Abdominal exam: Present: normal bowel sounds, soft, no peritoneal signs. Absent: distended, tenderness - Extremities Exam Extremities exam: Present: warm, radial pulses palpable and symmetrical. Absent : calf tenderness, cyanotic, pedal edema - Neurological Exam Neurological exam: Present: CN II-XII intact, oriented X3, no focal deficits, strengths equal and symetr throughout (left hemiparesis). Absent: pronater drift, facial droop, speech deficit Internal Medicine: Result - Labs CBC & Chem 7: 09/10/17 04:21 09/10/17 04:21 Labs: Short CBC 09/10/17 Range/Units 04:21 WBC 10.6 (4.3-11.1) K/mcL Hgb 10.7 L (12.9-16.9) g/dL Hct 32.0 L (37.5-50.1) % Plt Count 215 (140-400) K/mcL Neutrophils # 7.6 (1.6-8.9) K/mcL BMP 09/10/17 04:21 Sodium 135 L Potassium 3.0 L Chloride 91 L Carbon Dioxide 34 H BUN 30 H Creatinine 1.92 H Glucose 148 H Calcium 8.7 Liver Function 09/10/17 Range/Units 04:21 Total Bilirubin 0.6 (0.2-1.2) mg/dL AST 29 (5-34) Units/L ALT 26 (0-55) Units/L Alkaline Phosphatase 45 (38-126) Units/L Albumin 2.7 L (3.5-5.0) g/dL - ABG Interpretation ABG results: PT/INR, D-dimer PT 21.4 Seconds (9.4-12.1) H 09/04/17 15:28 - VTE Documentation of Mechanical Device: Intermittent pneumatic compression device Consult Discharge Plan - Plan Referrals: Niko Pettit MD [Partnered Physician] - 10/22/17 3:30 pm Mitra,Adeel Sutherland DPM [Partnered Physician] - 10/29/17 2:30 pm Mary Donahue MD [Primary Care Provider] - 09/17/17 11:15 am
[2017-09-10] MEDS: Insulin LISPRO 300 UNITS/3 ML VIAL SQ SCH ×3 (10:24→18:53)
[2017-09-10] MEDS: Isosorbide MONOnitrate (24 HR) 30 MG TAB.ER.24H PO SCH (10:26)
[2017-09-10] MEDS: Gabapentin 300 MG CAPSULE PO SCH ×2 (10:26→20:47)
[2017-09-10] MEDS: Furosemide 40 MG TABLET PO SCH ×2 (10:26→18:56)
[2017-09-10] MEDS: Aspirin Enteric Coated 81 MG Tablet PO SCH (10:26)
[2017-09-10] MEDS: (Fish Oil 1,000 Mg Softgel) PO SCH (10:27)
--- NOTE | 2017-09-10 12:22 | Anesthesia Evaluation PreOp ---
Date of Encounter: 09/10/17 Time of Encounter: 12:18 - Past History Planned Operation: EGD/Colonoscopy re: eval for worsening Anemia Cardiac History: CO, CHF (this hospitalization/admission), HTN (maintained on Metoprolol, Losartan), Hyperlipidemia (maintained on Atorvastatin), Other ( Carotid Stenosis. Known CAD w/ C 2012 30% proximal LAD, 40% proximal circumflex, 40% mid circumflex, 99% mid RCA, 100% distal RCA, distal RCA fills from left collaterals. -04/2016 TTE with LVEF 50-55%, mildly dilated LV, basal inferior wall akinetic. 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 Peripheral Neuropathy maintianed on Gabapentin. Dementia maintained on Aricept) Other Medical History: Renal (stage III acute on Chronic Kidney Dz), Diabetes Type II (maintained on Actos, Januvia), GERD (GIB/BRBPR) Anesthesia History: No Prior Anesthetic Complications, Past Anesthesia Alcohol Use: none, rarely Drug use: none Medications and Allergies Aspirin Enteric Coated [Aspirin EC] 81 mg PO DAILY 08/25/15 [History] Donepezil [Aricept] 5 mg PO HS 08/25/15 [History] Gabapentin [Neurontin] 600 mg PO BID 08/25/15 [History] Metoprolol XL (24 HR) Succ [Toprol XL] 25 mg PO DAILY 08/25/15 [History] Rivaroxaban [Xarelto] 15 mg PO 1700 08/25/15 [History] Sertraline [Zoloft] 150 mg PO DAILY 08/25/15 [History] LORazepam [Ativan] 1 mg PO QID PRN #20 tablet 08/28/15 [Rx] OxyCODONE/APAP 7.5/325 [Percocet 7.5/325] 1 each PO Q6HR PRN #20 tablet [Rx] Albuterol Sulfate [Ventolin Hfa] 2 puff IH Q4H PRN 05/09/16 [History] Atorvastatin Calcium [Lipitor] 80 mg PO HS 05/09/16 [History] GlipiZIDE [Glucotrol] 10 mg PO BIDWM 05/09/16 [History] [place]-3/Dha/Epa/Fish Oil [Fish Oil 1,000 mg Softgel] 1 each PO DAILY 05/09/16 [ History] Trazodone HCl 200 mg PO HS 05/09/16 [History] Losartan Potassium [Cozaar] 50 mg PO DAILY #30 tab 05/13/16 [Rx] Ergocalciferol (VITAMIN D2) [Vitamin D2] 50,000 unit PO QMONTH 09/04/17 [History ] Ferrous Sulfate [Iron] 325 mg PO DAILY 09/04/17 [History] Ipratropium/Albuterol Neb [Duoneb] 3 ml IH Q6HR 09/04/17 [History] Mirabegron [Myrbetriq] 50 mg PO DAILY 09/04/17 [History] Nitroglycerin [Nitrostat] 0.4 mg SL Q5M PRN 09/04/17 [History] Pioglitazone HCl [Actos] 30 mg PO DAILY 09/04/17 [History] Sitagliptin Phosphate [Januvia] 50 mg PO DAILY 09/04/17 [History] 3 Allergy/AdvReac Type Severity Reaction Status Date / Time No Known Allergies Allergy Verified 08/25/15 14:22 - Meds/Allergy Pre-op Review Medications Reviewed: Yes Allergies Reviewed: Yes Beta Blockers on Current Med List: Yes (Metoprolol) If Beta Blockers taken, Date/Time (Last Dose taken): 09/10/2017 2 9339 Anesthesia Results - Labs 09/10/17 04:21 09/10/17 04:21 Laboratory Results Laboratory Tests 07/02/17 09/04/17 09/04/17 11:55 15:28 15:28 WBC RBC PT 21.4 H INR 2.0 APTT 38.8 H Calcium Phosphorus 3.7 Magnesium Troponin I B-Natriuretic Peptide 1443 H 09/05/17 09/10/17 09/10/17 18:08 04:21 04:21 WBC 10.6 RBC 3.46 L PT INR APTT Calcium 8.7 Phosphorus Magnesium Troponin I 0.41 H* B-Natriuretic Peptide 09/10/17 04:21 WBC RBC PT INR APTT Calcium Phosphorus Magnesium 1.5 L Troponin I B-Natriuretic Peptide Impressions Chest X-Ray 09/04/17 14:46 IMPRESSION: Mild pulmonary vascular congestion. No focal consolidation. D/ / Jolene Cooper MD / Jolene Cooper MD Interpreting Provider: Jolene Cooper MD Head CT 09/04/17 16:42 IMPRESSION: 1. No acute intracranial abnormality. 2. 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 D/ / Camden Martin MD / Camden Martin MD Interpreting Provider: Camden Martin MD Pulmonary Perfusion Imaging 09/04/17 16:42 IMPRESSION: Very low probability for pulmonary embolism. D/ / Camden Martin MD / Camden Martin MD Interpreting Provider: Camden Martin MD Echocardiogram 09/05/17 22:29 Impressions: LVEF 55%. Normal LV chamber size, wall thickness and overall function. Mild segmental left ventricular systolic dysfunction. Moderate left ventricular diastolic dysfunction. Normal right ventricular structure and function. Mildly to moderately calcified aortic valve leaflets. No aortic stenosis by Doppler. Visually, there appears to be at least mild aortic stenosis. Mild mitral regurgitation. Mild-moderate mitral stenosis. Mean gradient 5 mmHg, HR 71 bpm. Mild pulmonary hypertension. Estimated RVSP is 41 mmHg. Left Ventricular Wall Motion: Rest Echo Findings The basal inferior wall was hypokinetic. All other wall segments showed normal motion. Findings: Study Quality * Technically adequate exam. ECG Findings * Normal sinus rhythm. Left Ventricle * LVEF 55%. * Normal LV chamber size, wall thickness and function. * Mild segmental left ventricular systolic dysfunction. * Moderate left ventricular diastolic dysfunction. Right Ventricle * Normal right ventricular structure and function. Left Atrium * Moderately dilated left atrium. Right Atrium * Mildly dilated right atrium. Aortic Valve * Trileaflet aortic valve. * Mildly to moderately calcified aortic valve leaflets. * No aortic regurgitation. * No aortic stenosis by Doppler. Visually, there appears to be at least mild aortic stenosis. Mitral Valve * Mildly thickened mitral valve leaflets. * Mild to moderate mitral annular calcification. * Mild mitral regurgitation. * Mild-moderate mitral stenosis. Mean gradient 5 mmHg, HR 71 bpm. Tricuspid Valve * Normal tricuspid valve structure and function. * Trace tricuspid regurgitation. * Mild pulmonary hypertension. * Estimated RVSP is 41 mmHg. * Estimated RA pressure is 5 mmHg. Pulmonic Valve * Pulmonic valve is not well visualized. * No pulmonic regurgitation. Aorta * Normally sized aortic root. Pericardium * The pericardium appears normal. IVC * Normal IVC dimensions and inspiratory collapse. Pulmonary Artery * Normal visualized portions of the main pulmonary artery. - Imaging EKG: image reviewed (153bpm AFib w/RVR, marked RAD, RBBB) Anesthesia Exam Vital Signs Temp Pulse Resp BP Pulse Ox 09/10/17 11:22 98.4 F 68 16 152/60 96 09/10/17 07:47 98 F 61 16 127/47 95 09/10/17 05:00 98.3 F 63 20 121/40 94 09/09/17 22:14 93 09/09/17 21:24 18 96 09/09/17 20:00 98.6 F 76 20 111/45 95 09/09/17 15:50 98.7 F 152 16 121/54 93 09/09/17 15:34 15 93 Intake and Output 09/09/17 09/10/17 09/10/17 23:59 07:59 15:59 Intake Total 1000 / 1000 25 / 25 Balance 1000 / 1000 25 / 25 Intake: IV Fluids 25 / 25 Cardizem 125 MG In Dextrose 5% 25 / 25 100 ML @ 5 MG/HR 5 mls/hr IVC . Q24H IZZY Rx#:[id number] Oral 1000 / 1000 0 / 0 Other: Stool Size Large Large Large Stool Consistency liquid liquid liquid Stool Color Green Green # Voids 1 1 # Bowel Movements 2 # Bowel Movement Diapers 5 Weight 87 kg Blood Glucose* 251 148 172 Patient Weight 09/10/17 23:59 Weight 87 kg Height: 5'10" Weight: 191# BMI = 27.5 NPO (# of Hours): MNoc - HEENT Pupil (Motor): Pupils equal, EOMI Mallampati: III Teeth: Edentulous Denture Type: Upper: Complete, Lower: Complete Oral Opening: Greater than 3 - RELAY ASSEMBLER LOC: Oriented, Confused RELAY ASSEMBLER Motor: Normal LUE, Normal LLE RELAY ASSEMBLER Sensory: Normal: LUE, LLE - Cardiac Rhythm: Irregular Murmur: Systolic JVD: Yes - Pulmonary Breath Sounds: bilateral Clear (distant heart sounds) Respiratory Effort: Symmetrical Anesthesia Assess/Plan ASA Score: 4 (AFib w/RVR, COPD, CAD, CHF, DM, CKD stage III) Modified [place] Scale for Level of Consciousness: Cooperative, oriented, and tranquil Anesthetic Plan: MAC Monitoring Plan: Standard Monitors Recovery Plan: PACU Anes Supervising Prov Stmt: PT seen/evaluated, R&B Discussed, questions answered and consent obtained. Ulices Pool MD
[2017-09-10] MEDS ORDERED: *HR* Propofol 500 MG/50 ML BOTTLE IVC ONE (14:33)
[2017-09-10] MEDS: Melatonin 3 MG TABLET PO SCH (20:47)
[2017-09-10] MEDS: traZODone 50 MG TABLET PO SCH (20:48)
[2017-09-10] MEDS: Insulin DETEMIR 100 UNIT/ML X5UNITS SQ SCH (20:49)
[2017-09-10] MEDS: *HR* OxyCODONE/APAP 7.5/325 TABLET PO PRN (21:29)
[2017-09-11] MEDS: Ipratropium/Albuterol Neb 3 ML IH SCH ×3 (04:20→16:58)
[2017-09-11 04:47] LABS: Basophils % 0.4 %; Eosinophils % 10.5 %; Hematocrit 32.7 % (37.5-50.1); Immature Granulocytes % 0.2 % (0-4); Lymphocytes # 1.4 K/mcL (0.6-4.6); Lymphocytes % 14.5 %; Mean Corpuscular HGB Conc 33.6 g/dL (31.6-35.5); Mean Corpuscular Hemoglobin 30.6 pg (28.0-33.3); Mean Corpuscular Volume 90.8 fL (83.0-100.0); Mean Platelet Volume 9.5 fL (9.4-12.4); Monocytes # 0.6 K/mcL (0.0-1.3); Monocytes % 6.6 %; Neutrophils # 6.4 K/mcL (1.6-8.9); Platelet Count 214 K/mcL (140-400); Red Cell Distribution Width 13.8 % (11.5-14.5); Segmented Neutrophils % 67.8 %
[2017-09-11 05:08] LABS: Calcium 8.6 mg/dL (8.6-10.8); Potassium 3.7 mEq/L (3.5-4.5)
[2017-09-11] MEDS: *HR* OxyCODONE/APAP 7.5/325 TABLET PO PRN ×2 (05:09→11:22)
[2017-09-11] MEDS: Pantoprazole 40 MG VIAL IVP SCH (05:09)
[2017-09-11 08:41] VITALS: BP 120/50
[2017-09-11] MEDS: Furosemide 40 MG TABLET PO SCH (08:53)
[2017-09-11] MEDS: Aspirin Enteric Coated 81 MG Tablet PO SCH (08:53)
[2017-09-11] MEDS: Metoprolol XL (24 HR) Succ 25 MG TAB.ER.24H PO SCH (08:54)
[2017-09-11] MEDS: Gabapentin 300 MG CAPSULE PO SCH (08:54)
[2017-09-11] MEDS: Isosorbide MONOnitrate (24 HR) 30 MG TAB.ER.24H PO SCH (08:54)
[2017-09-11] MEDS: Insulin LISPRO 300 UNITS/3 ML VIAL SQ SCH ×2 (08:57→11:24)
--- NOTE | 2017-09-11 15:18 | Discharge Summary ---
Date of Encounter: 09/11/17 Time of Encounter: 12:00 - Discharge Diagnosis (1) GI bleed Priority: Primary Status: Acute Qualifiers: GI bleed type/associated pathology: unspecified gastrointestinal hemorrhage type Qualified Code(s): K92.2 - Gastrointestinal hemorrhage, unspecified (2) Atrial fibrillation Priority: Primary Status: Acute Qualifiers: Atrial fibrillation type: paroxysmal Qualified Code(s): I48.0 - Paroxysmal atrial fibrillation (3) CKD (chronic kidney disease) Priority: Secondary Status: Chronic Qualifiers: Chronic kidney disease stage: stage 3 (moderate) Qualified Code(s): N18.3 - Chronic kidney disease, stage 3 (moderate) (4) DM2 (diabetes mellitus, type 2) Priority: Secondary Status: Chronic Qualifiers: Diabetes mellitus complication status: with unspecified complications Diabetes mellitus meterman insulin use: without meterman use Qualified Code( s): E11.8 - Type 2 diabetes mellitus with unspecified complications (5) Anxiety Priority: Secondary Status: Chronic (6) History of CVA (cerebrovascular accident) Priority: Secondary Status: Chronic (7) HTN (hypertension) Priority: Secondary Status: Chronic Qualifiers: Hypertension type: essential hypertension Qualified Code(s): I10 - Essential (primary) hypertension (8) Elevated troponin Priority: Primary Status: Resolved (9) CHF (congestive heart failure) Priority: Secondary Status: Chronic Qualifiers: Congestive heart failure type: diastolic Congestive heart failure chronicity: chronic Qualified Code(s): I50.32 - Chronic diastolic (congestive ) heart failure (10) ROSA MARIA (acute kidney injury) Priority: Primary Status: Resolved (11) CAD (coronary artery disease) Priority: Secondary Status: Chronic Qualifiers: Coronary Disease-Associated Artery/Lesion type: [place] artery [place] vs. transplanted heart: [place] heart Associated angina: without angina Qualified Code(s): I25.10 - Atherosclerotic heart disease of [place] coronary artery without angina pectoris (12) Hypokalemia Priority: Primary Status: Resolved (13) Hypomagnesemia Priority: Primary Status: Resolved - Discharge Medications Prescriptions: OxyCODONE/APAP 7.5/325 [Percocet 7.5/325 MG] 1 each PO Q6HR PRN #15 tablet PRN Reason: Pain Isosorbide MONOnitrate (24 HR) [Imdur] 30 mg PO DAILY #30 tab.er.24h Home Medications: Aspirin Enteric Coated [Aspirin EC] 81 mg PO DAILY 08/25/15 [History] Donepezil [Aricept] 5 mg PO HS 08/25/15 [History] Gabapentin [Neurontin] 600 mg PO BID 08/25/15 [History] Metoprolol XL (24 HR) Succ [Toprol XL] 25 mg PO DAILY 08/25/15 [History] Rivaroxaban [Xarelto] 15 mg PO 1700 08/25/15 [History] Sertraline [Zoloft] 150 mg PO DAILY 08/25/15 [History] LORazepam [Ativan] 1 mg PO QID PRN #20 tablet 08/28/15 [Rx] Albuterol Sulfate [Ventolin Hfa] 2 puff IH Q4H PRN 05/09/16 [History] Atorvastatin Calcium [Lipitor] 80 mg PO HS 05/09/16 [History] GlipiZIDE [Glucotrol] 10 mg PO BIDWM 05/09/16 [History] [place]-3/Dha/Epa/Fish Oil [Fish Oil 1,000 mg Softgel] 1 each PO DAILY 05/09/16 [ History] Trazodone HCl 200 mg PO HS 05/09/16 [History] Losartan Potassium [Cozaar] 50 mg PO DAILY #30 tab 05/13/16 [Rx] Ergocalciferol (VITAMIN D2) [Vitamin D2] 50,000 unit PO QMONTH 09/04/17 [History ] Ferrous Sulfate [Iron] 325 mg PO DAILY 09/04/17 [History] Ipratropium/Albuterol Neb [Duoneb] 3 ml IH Q6HR 09/04/17 [History] Mirabegron [Myrbetriq] 50 mg PO DAILY 09/04/17 [History] Nitroglycerin [Nitrostat] 0.4 mg SL Q5M PRN 09/04/17 [History] Pioglitazone HCl [Actos] 30 mg PO DAILY 09/04/17 [History] Sitagliptin Phosphate [Januvia] 50 mg PO DAILY 09/04/17 [History] Furosemide [Lasix] 40 mg PO BIDDIURETIC tablet 09/11/17 [Rx] Isosorbide MONOnitrate (24 HR) [Imdur] 30 mg PO DAILY #30 tab.er.24h 09/11/17 [ Rx] OxyCODONE/APAP 7.5/325 [Percocet 7.5/325 MG] 1 each PO Q6HR PRN #15 tablet 09/11 [Rx] Allergies/Adverse Reactions: 3 Allergy/AdvReac Type Severity Reaction Status Date / Time No Known Allergies Allergy Verified 08/25/15 14:22 Procedures/tests Complete & Pending: Procedures Performed prior 72 hours Category Date Time Status ECG 12 lead ECG [ECG] Routine Y 09/09/17 15:56 Completed Date of admission: 09/04/17 21:22 Primary care physician: Mary Donahue Consults: 09/04/17 21:51 Consult to Gastroenterology [CONS] Routine Consulting Provider: Gastroenterology Gissel Reason for Consult: stool occult positive on xarelto Time Notified: 21:52 Call Completed: No 09/11/17 10:50 Consult to Real Estate Clerk [CONS] Routine Reason for SW Consult: Per nursing, patient now wanting rehab; [facility] Discharging clinician: Candy Garcia Anticipated date of discharge: 09/11/17 - Patient Status Disposition: Transfer SNF Condition: Fair Functional capacity at discharge: wheelchair bound Overall status at discharge: patient is progressing back to baseline - Discharge Instructions Follow Up With: Niko Pettit MD [Partnered Physician] - 10/22/17 3:30 pm Sessions,Adeel Sutherland DPM [Partnered Physician] - 10/29/17 2:30 pm Mary Donahue MD [Primary Care Provider] - 09/17/17 11:15 am - Diet and Activity Activity: as per physical therapy Diet: diabetic diet, low fat, low cholesterol, low salt diet, other (renal diet) Hospital course: Mr. Stockton is a 77 year old male with the above medical problems, admitted with rectal bleeding. He was noted to have acute blood loss anemia and acute kidney injury due to this, and his Hb remained stable after receiving 2units PRBC transfusion. He was noted to be on Xarelto, which was held since admission. He was noted to have mild Troponin elevation along with EKG changes of T wave inversions in inferior and anterolateral leads. Cardiology was consulted and recommended no intervention given his ongoing anemia and blood loss. He was started on Imdur and was cleared for endoscopy/colonoscopy with moderate risk. GI was consulted and patient underwent EGD, showed gastritis with no active bleeding; Colonoscopy showed nonbleeding polyps, removed and biopsy pending. He developed paroxysmal atrial fibrillation with RVR during his hospital stay and was started on IV Cardizem drip, and converted to sinus rhythm. Since there was no active GO bleed noted, he is now being resumed on his Xarelto. HR is well -controlled and patient is medically stable for discharge. He has poor baseline functional status due to previous stroke and is being discharged to [facility]. - Time Spent with Patient Total time spent providing and/or coordinating discharge services: Greater than 30 minutes (45 min) - Constitutional Vitals: Temp Pulse Resp BP Pulse Ox 97.1 F L 66 16 120/50 97 09/11/17 08:40 09/11/17 08:40 09/11/17 10:41 09/11/17 08:40 09/11/17 10:41 General appearance: Present: A&O X 3, answers questions appropriately - Cardiovascular Cardiovascular exam: Present: RRR, +S1, +S2. Absent: diastolic murmur, gallop, rubs, systolic murmur - VTE Documentation of Mechanical Device: Intermittent pneumatic compression device
--- NOTE | 2017-09-11 16:41 | Physician Discharge Referral ---
ExtendedCare Referral Info Transfer To: [facility] Provider in Charge: Candy Garcia Provider in Charge after Transfer: PCP Institutional Level of Care: Skilled - Diagnosis (1) GI bleed Priority: Primary Status: Acute (2) Atrial fibrillation Priority: Primary Status: Acute (3) CKD (chronic kidney disease) Priority: Secondary Status: Chronic (4) DM2 (diabetes mellitus, type 2) Priority: Secondary Status: Chronic (5) Anxiety Priority: Secondary Status: Chronic (6) History of CVA (cerebrovascular accident) Priority: Secondary Status: Chronic (7) HTN (hypertension) Priority: Secondary Status: Chronic (8) Elevated troponin Priority: Primary Status: Resolved (9) CHF (congestive heart failure) Priority: Primary Status: Chronic (10) ROSA MARIA (acute kidney injury) Priority: Primary Status: Resolved (11) CAD (coronary artery disease) Priority: Secondary Status: Chronic (12) Hypokalemia Priority: Primary Status: Resolved (13) Hypomagnesemia Priority: Primary Status: Resolved Expected Duration of Placement: 3 weeks Prognosis: Good Aware of Diagnosis: Patient, Family Aware of Prognosis: Patient, Family - Transfer Medications Prescriptions: OxyCODONE/APAP 7.5/325 [Percocet 7.5/325 MG] 1 each PO Q6HR PRN #15 tablet PRN Reason: Pain Isosorbide MONOnitrate (24 HR) [Imdur] 30 mg PO DAILY #30 tab.er.24h Home Medications: Aspirin Enteric Coated [Aspirin EC] 81 mg PO DAILY 08/25/15 [History] Donepezil [Aricept] 5 mg PO HS 08/25/15 [History] Gabapentin [Neurontin] 600 mg PO BID 08/25/15 [History] Metoprolol XL (24 HR) Succ [Toprol XL] 25 mg PO DAILY 08/25/15 [History] Rivaroxaban [Xarelto] 15 mg PO 1700 08/25/15 [History] Sertraline [Zoloft] 150 mg PO DAILY 08/25/15 [History] LORazepam [Ativan] 1 mg PO QID PRN #20 tablet 08/28/15 [Rx] Albuterol Sulfate [Ventolin Hfa] 2 puff IH Q4H PRN 05/09/16 [History] Atorvastatin Calcium [Lipitor] 80 mg PO HS 06/30/16 [History] GlipiZIDE [Glucotrol] 10 mg PO BIDWM 05/09/16 [History] [place]-3/Dha/Epa/Fish Oil [Fish Oil 1,000 mg Softgel] 1 each PO DAILY 05/09/16 [ History] Trazodone HCl 200 mg PO HS 05/09/16 [History] Losartan Potassium [Cozaar] 50 mg PO DAILY #30 tab 05/13/16 [Rx] Ergocalciferol (VITAMIN D2) [Vitamin D2] 50,000 unit PO QMONTH 09/04/17 [History ] Ferrous Sulfate [Iron] 325 mg PO DAILY 09/04/17 [History] Ipratropium/Albuterol Neb [Duoneb] 3 ml IH Q6HR 09/04/17 [History] Mirabegron [Myrbetriq] 50 mg PO DAILY 09/04/17 [History] Nitroglycerin [Nitrostat] 0.4 mg SL Q5M PRN 09/04/17 [History] Pioglitazone HCl [Actos] 30 mg PO DAILY 09/04/17 [History] Sitagliptin Phosphate [Januvia] 50 mg PO DAILY 09/04/17 [History] Furosemide [Lasix] 40 mg PO BIDDIURETIC tablet 09/11/17 [Rx] Isosorbide MONOnitrate (24 HR) [Imdur] 30 mg PO DAILY #30 tab.er.24h 09/11/17 [ Rx] OxyCODONE/APAP 7.5/325 [Percocet 7.5/325 MG] 1 each PO Q6HR PRN #15 tablet 09/11 [Rx] Allergies/Adverse Reactions: 3 Allergy/AdvReac Type Severity Reaction Status Date / Time No Known Allergies Allergy Verified 08/25/15 14:22 - Respiratory Orders Smoking Cessation: Smoking cessation has been advised. For more information, call the [place] Tobacco Quit Line at 3-191-XWUI-NOW. - Advance Directives Code Status: Full Code - Mobility Orders Ambulate - Rehabiliation Orders Rehab Potential: Fair Rehab Orders: ROM Exercises, Evaluation for Physical Therapy, Evaluation for Occupational Therapy - Diet Orders Renal, Cardiac CERTIFICATION: I certify that the transfer of the above named patient to an Extended Care Facility is necessary for the continuing treatment of the diagnosis listed. The above information is true and accurate reflection of patient's current condition. Confidential - Redisclosure prohibited without a patient's written consent.
== END 2017-09-11 19:35 | DRG 377 ==
LOC: 2NENU 14:41 → EMEROO 14:41 → 2NENU 19:58 → SUATTDRO 21:22
PROVIDERS: ADMIT Internal Medicine; ATTEND Internal Medicine
PROC: ENDOEBX (2017-09-10 14:00)